=== PATIENT | male | born 1960 | race Caucasian/White ===

== ENCOUNTER 2018-07-27 17:06 | Emergency (ER) | payer OTHER ==
[2018-07-27] MEDS ORDERED: Sodium Chloride 0.9% 1,000 ML IV ONE ×2 (17:19→19:21)
--- NOTE | 2018-07-27 17:20 | EDM.PDOC ---
ED HPI GENERAL MEDICAL PROBLEM - General Chief Complaint: Chest Pain Stated Complaint: TROUBLE BREATHING Time Seen by Provider: 07/27/18 17:19 Source of Information: Reports: Patient - History of Present Illness INITIAL COMMENTS - FREE TEXT/NARRATIVE: HISTORY AND PHYSICAL: History of present illness: [Patient presents with fever and epigastric pain on deep inspiration patient complains of shortness of breath however he does not appear short of breath he relates the shortness of breath to the pain on deep inspiration he does not have actual chest pain or diaphoresis patient symptoms began yesterday 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 Past medical history: As per history of present illness and as reviewed below otherwise noncontributory. Surgical history: As per history of present illness and as reviewed below otherwise noncontributory. Social history: No reported history of drug or alcohol abuse. Family history: As per history of present illness and as reviewed below otherwise noncontributory. Physical exam: HEENT: Atraumatic, normocephalic, pupils reactive, negative for conjunctival pallor or scleral icterus, mucous membranes moist, throat clear, neck supple, nontender, trachea midline. Lungs: Clear to auscultation, breath sounds equal bilaterally, chest nontender. Heart: S1S2, regular, negative for clicks, rubs, or JVD. Abdomen: Soft, nondistended, epigastric pain on deep palpation. Negative for masses or hepatosplenomegaly. Negative for costovertebral tenderness. Pelvis: Stable nontender. Genitourinary: Deferred. Rectal: Deferred. Extremities: Atraumatic, negative for cords or calf pain. Neurovascular unremarkable. Neuro: Awake, alert, oriented. Cranial nerves II through XII unremarkable. Cerebellum unremarkable. Motor and sensory unremarkable throughout. Exam nonfocal. Diagnostics: [CBC CMP troponin lipase UA blood cultures quanteferion on gold D-dimer Chest [address] with contrast CTA chest ] Therapeutics: [Normal saline Tylenol Morphine 2 mg IV DuoNeb Solu-Medrol 125 mg IV Banana bag Vancomycin 1 g IV Levaquin 750 IV Patient is transferred to [facility] Doctor Abebe in the emergency room has excepted care, will transfer by ground follow CT and redirected in the interim ] Impression: [Fever] Sinus tachycardia Hypotension systemic inflammatory response syndrome Infiltrate on chest x-ray/pneumonia Abdominal pain Definitive disposition and diagnosis as appropriate pending reevaluation and review of above. Left Chest Pain Score (Numeric/FACES): 10 - Related Data Allergies Allergy/AdvReac Type Severity Reaction Status Date / Time aspirin Allergy Anaphylactic Verified 07/27/18 17:21 Shock ibuprofen Allergy Difficulty Verified 07/27/18 17:21 Breathing Penicillins Allergy Anaphylactic Verified 07/27/18 17:21 Shock Home Meds: Home Meds Albuterol Sulfate [Proair Hfa] 2 puff INH ASDIRECTED PRN 04/01/18 [History] Budesonide/Formoterol Fumarate [Symbicort 160-4.5 Mcg Inhaler] 1 puff INH BID [History] Lisinopril 20 mg PO DAILY 04/01/18 [History] Pantoprazole [ProTONIX] 40 mg PO DAILY 04/01/18 [History] Sertraline [Zoloft] 50 mg PO BEDTIME 04/01/18 [History] Simvastatin [Zocor] 10 mg PO BEDTIME 04/01/18 [History] metFORMIN HCl [Metformin HCl] 1,000 mg PO BID 04/01/18 [History] traZODone HCl [Trazodone HCl] 50 mg PO BEDTIME PRN 04/01/18 [History] Cyclobenzaprine HCl 0.5 - 1 tab PO ASDIRECTED PRN 06/12/18 [History] Dulaglutide [Trulicity] 0.75 mg SUBCUT WEEKLY 06/12/18 [History] Empagliflozin [Jardiance] 25 mg PO DAILY 06/12/18 [History] Montelukast Sodium 10 mg PO BEDTIME 06/12/18 [History] Tiotropium [place] [Spiriva Respimat] 2 inhalation INH DAILY 06/12/18 [History] predniSONE 10 mg PO WITHBREAKFAST 06/12/18 [History] Past Medical History HEENT History: Reports: None Cardiovascular History: Reports: High Cholesterol, Hypertension Respiratory History: Reports: Asthma, COPD Gastrointestinal History: Reports: GERD Other Genitourinary History: states kidney failure in the past Musculoskeletal History: Reports: Back Pain, Chronic, Osteoarthritis Neurological History: Reports: Concussion Psychiatric History: Reports: Anxiety, Depression Endocrine/Metabolic History: Reports: Diabetes, Type II - Past Surgical History Head Surgeries/Procedures: Reports: None HEENT Surgical History: Reports: Cataract Surgery, Naso-Sinus Surgery Musculoskeletal Surgical History: Reports: Hip Replacement Other Musculoskeletal Surgeries/Procedures:: daniel hip replacement Social & Family History - Family History Family Medical History: Noncontributory - Caffeine Use Caffeine Use: Reports: Coffee, Soda ED ROS GENERAL - Review of Systems Review Of Systems: See Below ED EXAM, GENERAL - Physical Exam Exam: See Below Course - Vital Signs Last Recorded V/S: Last Vital Signs Temp 103.8 F H 07/27/18 18:11 Pulse 138 H 07/27/18 18:11 Resp 25 H 07/27/18 18:11 BP 125/53 L 07/27/18 18:11 Pulse Ox 94 L 07/27/18 18:11 - Orders/Labs/Meds Orders: Active Orders 24 hr Category Date Time Status EKG Documentation Completion [RC] STAT Care 07/27/18 17:19 Active RT Aerosol Therapy [RC] ASDIRECTED Care 07/27/18 19:00 Active Abdomen Pelvis w Cont [CT] Stat Exams 07/27/18 17:59 Taken CTA Chest W WO Contrast [Ang Chest] [CT] Stat Exams 07/27/18 18:32 Taken CULTURE BLOOD [BC] Stat Lab 07/27/18 17:20 Received CULTURE BLOOD [BC] Stat Lab 07/27/18 17:40 Received CULTURE STREP A CONFIRMATION [RM] Stat Lab 07/27/18 17:22 Results QUANTIFERON TB PLUS [REF] Stat Lab 07/27/18 19:02 Received STREP SCRN A RAPID W CULT CONF [RM] Stat Lab 07/27/18 17:22 Results Levofloxacin/Dextrose 5%-Water [Levaquin in D5W 750 MG/ Med 07/27/18 18:49 Active 150 ML] 750 mg Premix Bag 1 bag IV ONETIME MVI, Adult with Vitamin K [Infuvite Adult] 10 ml Med 07/27/18 18:45 Active Thiamine [Vitamin B-1] 100 mg Folic Acid 1 mg Sodium Chloride 0.9% [Normal Saline] 1,000 ml IV ONETIME Vancomycin [Vancocin] 1 gm Med 07/27/18 18:49 Active Sodium Chloride 0.9% [Normal Saline] 250 ml IV ONETIME Blood Culture x2 Reflex Set [OM.PC] Stat Oth 07/27/18 17:24 Ordered Medication Orders Multivitamins/Minerals 10 ml/Thiamine HCl 100 mg/ Folic Acid 1 mg/ Sodium Chloride 1,011.2 mls @ 200 mls/hr IV ONETIME ONE Stop: 07/27/18 23:48 Levofloxacin/Dextrose 750 mg/ (Premix) 150 mls @ 100 mls/hr IV ONETIME ONE Stop: 07/27/18 20:18 Vancomycin HCl 1 gm/ Sodium (Chloride) 250 mls @ 250 mls/hr IV ONETIME ONE Stop: 07/27/18 19:48 Labs: Laboratory Tests 07/27/18 07/27/18 07/27/18 Range/Units 17:20 17:20 17:20 WBC 8.25 (4.0-11.0) K/uL RBC 4.65 (4.50-5.90) M/uL Hgb 12.1 L (13.0-17.0) g/dL Hct 36.9 L (38.0-50.0) % MCV 79.4 L (80.0-98.0) fL MCH 26.0 L (27.0-32.0) pg MCHC 32.8 (31.0-37.0) g/dL RDW Std Deviation 50.0 (28.0-62.0) fl RDW Coeff of Lydia 18 H (11.0-15.0) % Plt Count 152 (150-400) K/uL MPV 9.40 (7.40-12.00) fL Neut % (Auto) 89.2 H (48.0-80.0) % Lymph % (Auto) 6.3 L (16.0-40.0) % [place] % (Auto) 4.4 (0.0-15.0) % Eos % (Auto) 0.1 (0.0-7.0) % Baso % (Auto) 0.0 (0.0-1.5) % Neut # (Auto) 7.4 H (1.4-5.7) K/uL Lymph # (Auto) 0.5 L (0.6-2.4) K/uL [place] # (Auto) 0.4 (0.0-0.8) K/uL Eos # (Auto) 0.0 (0.0-0.7) K/uL Baso # (Auto) 0.0 (0.0-0.1) K/uL Nucleated RBC % 0.0 /100WBC Nucleated RBCs # 0 K/uL INR 1.02 D-Dimer, Quantitative (0.0-0.50) mg/L FEU Lactate (0.20-2.00) mmol/L Sodium 135 L (136-148) mmol/L Potassium 3.9 (3.5-5.1) mmol/L Chloride 99 (98-107) mmol/L Carbon Dioxide 22.6 (21.0-32.0) mmol/L BUN 15 (7.0-18.0) mg/dL Creatinine 1.0 (0.8-1.3) mg/dL Est Cr Clr Drug Dosing 91.51 mL/min Estimated GFR (MDRD) > 60.0 ml/min Glucose 99 (74-106) mg/dL Calcium 8.9 (8.5-10.1) mg/dL Total Bilirubin 0.7 (0.2-1.0) mg/dL AST 23 (15-37) IU/L ALT 37 (14-63) IU/L Alkaline Phosphatase 61 (46-116) U/L Troponin I < 0.050 (0.000-0.056) ng/mL Total Protein 7.2 (6.4-8.2) g/dL Albumin 3.7 (3.4-5.0) g/dL Globulin 3.5 (2.6-4.0) g/dL Albumin/Globulin Ratio 1.1 (0.9-1.6) Lipase (73-393) U/L Urine Color Urine Appearance Urine pH (5.0-8.0) Ur Specific [place] (1.001-1.035) Urine Protein (NEGATIVE) mg/dL Urine Glucose (UA) (NEGATIVE) mg/dL Urine Ketones (NEGATIVE) mg/dL Urine Occult Blood (NEGATIVE) Urine Nitrite (NEGATIVE) Urine Bilirubin (NEGATIVE) Urine Urobilinogen (<2.0) EU/dL Ur Leukocyte Esterase (NEGATIVE) 07/27/18 07/27/18 07/27/18 Range/Units 17:20 17:20 17:22 WBC (4.0-11.0) K/uL RBC (4.50-5.90) M/uL Hgb (13.0-17.0) g/dL Hct (38.0-50.0) % MCV (80.0-98.0) fL MCH (27.0-32.0) pg MCHC (31.0-37.0) g/dL RDW Std Deviation (28.0-62.0) fl RDW Coeff of Lydia (11.0-15.0) % Plt Count (150-400) K/uL MPV (7.40-12.00) fL Neut % (Auto) (48.0-80.0) % Lymph % (Auto) (16.0-40.0) % [place] % (Auto) (0.0-15.0) % Eos % (Auto) (0.0-7.0) % Baso % (Auto) (0.0-1.5) % Neut # (Auto) (1.4-5.7) K/uL Lymph # (Auto) (0.6-2.4) K/uL [place] # (Auto) (0.0-0.8) K/uL Eos # (Auto) (0.0-0.7) K/uL Baso # (Auto) (0.0-0.1) K/uL Nucleated RBC % /100WBC Nucleated RBCs # K/uL INR D-Dimer, Quantitative 0.38 (0.0-0.50) mg/L FEU Lactate 3.1 H (0.20-2.00) mmol/L Sodium (136-148) mmol/L Potassium (3.5-5.1) mmol/L Chloride (98-107) mmol/L Carbon Dioxide (21.0-32.0) mmol/L BUN (7.0-18.0) mg/dL Creatinine (0.8-1.3) mg/dL Est Cr Clr Drug Dosing mL/min Estimated GFR (MDRD) ml/min Glucose (74-106) mg/dL Calcium (8.5-10.1) mg/dL Total Bilirubin (0.2-1.0) mg/dL AST (15-37) IU/L ALT (14-63) IU/L Alkaline Phosphatase (46-116) U/L Troponin I (0.000-0.056) ng/mL Total Protein (6.4-8.2) g/dL Albumin (3.4-5.0) g/dL Globulin (2.6-4.0) g/dL Albumin/Globulin Ratio (0.9-1.6) Lipase 132 (73-393) U/L Urine Color Urine Appearance Urine pH (5.0-8.0) Ur Specific [place] (1.001-1.035) Urine Protein (NEGATIVE) mg/dL Urine Glucose (UA) (NEGATIVE) mg/dL Urine Ketones (NEGATIVE) mg/dL Urine Occult Blood (NEGATIVE) Urine Nitrite (NEGATIVE) Urine Bilirubin (NEGATIVE) Urine Urobilinogen (<2.0) EU/dL Ur Leukocyte Esterase (NEGATIVE) 07/27/18 Range/Units 18:05 WBC (4.0-11.0) K/uL RBC (4.50-5.90) M/uL Hgb (13.0-17.0) g/dL Hct (38.0-50.0) % MCV (80.0-98.0) fL MCH (27.0-32.0) pg MCHC (31.0-37.0) g/dL RDW Std Deviation (28.0-62.0) fl RDW Coeff of Lydia (11.0-15.0) % Plt Count (150-400) K/uL MPV (7.40-12.00) fL Neut % (Auto) (48.0-80.0) % Lymph % (Auto) (16.0-40.0) % [place] % (Auto) (0.0-15.0) % Eos % (Auto) (0.0-7.0) % Baso % (Auto) (0.0-1.5) % Neut # (Auto) (1.4-5.7) K/uL Lymph # (Auto) (0.6-2.4) K/uL [place] # (Auto) (0.0-0.8) K/uL Eos # (Auto) (0.0-0.7) K/uL Baso # (Auto) (0.0-0.1) K/uL Nucleated RBC % /100WBC Nucleated RBCs # K/uL INR D-Dimer, Quantitative (0.0-0.50) mg/L FEU Lactate (0.20-2.00) mmol/L Sodium (136-148) mmol/L Potassium (3.5-5.1) mmol/L Chloride (98-107) mmol/L Carbon Dioxide (21.0-32.0) mmol/L BUN (7.0-18.0) mg/dL Creatinine (0.8-1.3) mg/dL Est Cr Clr Drug Dosing mL/min Estimated GFR (MDRD) ml/min Glucose (74-106) mg/dL Calcium (8.5-10.1) mg/dL Total Bilirubin (0.2-1.0) mg/dL AST (15-37) IU/L ALT (14-63) IU/L Alkaline Phosphatase (46-116) U/L Troponin I (0.000-0.056) ng/mL Total Protein (6.4-8.2) g/dL Albumin (3.4-5.0) g/dL Globulin (2.6-4.0) g/dL Albumin/Globulin Ratio (0.9-1.6) Lipase (73-393) U/L Urine Color YELLOW Urine Appearance CLEAR Urine pH 5.0 (5.0-8.0) Ur Specific [place] 1.015 (1.001-1.035) Urine Protein NEGATIVE (NEGATIVE) mg/dL Urine Glucose (UA) NEGATIVE (NEGATIVE) mg/dL Urine Ketones NEGATIVE (NEGATIVE) mg/dL Urine Occult Blood NEGATIVE (NEGATIVE) Urine Nitrite NEGATIVE (NEGATIVE) Urine Bilirubin NEGATIVE (NEGATIVE) Urine Urobilinogen 0.2 (<2.0) EU/dL Ur Leukocyte Esterase NEGATIVE (NEGATIVE) Meds: Medications Generic Name Dose Route Start Last Admin Trade Name Freq PRN Reason Stop Dose Admin Multivitamins/Minerals 10 ml/ 1,011.2 mls @ 200 mls/hr 07/27/18 18:45 Thiamine HCl 100 mg/ Folic IV 07/27/18 23:48 Acid 1 mg/ Sodium Chloride ONETIME ONE Levofloxacin/Dextrose 750 mg/ 150 mls @ 100 mls/hr 07/27/18 18:49 Premix IV 07/27/18 20:18 ONETIME ONE Vancomycin HCl 1 gm/ Sodium 250 mls @ 250 mls/hr 07/27/18 18:49 Chloride IV 07/27/18 19:48 ONETIME ONE Discontinued Medications Generic Name Dose Route Start Last Admin Trade Name Janay PRN Reason Stop Dose Admin Acetaminophen 1,000 mg 07/27/18 17:24 07/27/18 17:34 Tylenol Extra Strength PO 07/27/18 17:25 1,000 mg ONETIME ONE Administration Albuterol/Ipratropium 3 ml 07/27/18 19:00 Duoneb 3.0-0.5 Mg/3 Ml NEB 07/27/18 19:01 ONETIME ONE Sodium Chloride 1,000 mls @ 999 mls/hr 07/27/18 17:19 07/27/18 17:34 Normal Saline IV 07/27/18 18:19 999 mls/hr STAT ONE Administration Methylprednisolone Sodium Succinate 125 mg 07/27/18 19:00 Solu-Medrol IVPUSH 07/27/18 19:01 ONETIME ONE Morphine Sulfate 2 mg 07/27/18 18:17 Morphine IVPUSH 07/27/18 18:18 ONETIME ONE Departure - Departure Time of Disposition: 19:25 Disposition: DC/Tfer to Acute Hospital 02 Condition: Poor Clinical Impression: Systemic inflammatory response syndrome, Pneumonia - Discharge Information Referrals: Derrick Dove MD [Primary Care Provider] - Forms: ED Department Discharge - My Orders Last 24 Hours: My Active Orders 07/27/18 17:19 EKG Documentation Completion [RC] STAT 07/27/18 17:20 CULTURE BLOOD [BC] Stat 07/27/18 17:22 CULTURE STREP A CONFIRMATION [RM] Stat STREP SCRN A RAPID W CULT CONF [RM] Stat 07/27/18 17:24 Blood Culture x2 Reflex Set [OM.PC] Stat 07/27/18 17:40 CULTURE BLOOD [BC] Stat 07/27/18 17:59 Abdomen Pelvis w Cont [CT] Stat 07/27/18 18:32 CTA Chest W WO Contrast [Ang Chest] [CT] Stat 07/27/18 18:45 MVI, Adult with Vitamin K [Infuvite Adult] 10 ml Thiamine [Vitamin B-1] 100 mg Folic Acid 1 mg Sodium Chloride 0.9% [Normal Saline] 1,000 ml IV ONETIME 07/27/18 18:49 Levofloxacin/Dextrose 5%-Water [Levaquin in D5W 750 MG/150 ML] 750 mg Premix Bag 1 bag IV ONETIME Vancomycin [Vancocin] 1 gm Sodium Chloride 0.9% [Normal Saline] 250 ml IV ONETIME 07/27/18 19:00 RT Aerosol Therapy [RC] ASDIRECTED 07/27/18 19:02 QUANTIFERON TB PLUS [REF] Stat - Assessment/Plan Last 24 Hours: My Active Orders 07/27/18 17:19 EKG Documentation Completion [RC] STAT 07/27/18 17:20 CULTURE BLOOD [BC] Stat 07/27/18 17:22 CULTURE STREP A CONFIRMATION [RM] Stat STREP SCRN A RAPID W CULT CONF [RM] Stat 07/27/18 17:24 Blood Culture x2 Reflex Set [OM.PC] Stat 07/27/18 17:40 CULTURE BLOOD [BC] Stat 07/27/18 17:59 Abdomen Pelvis w Cont [CT] Stat 07/27/18 18:32 CTA Chest W WO Contrast [Ang Chest] [CT] Stat 07/27/18 18:45 MVI, Adult with Vitamin K [Infuvite Adult] 10 ml Thiamine [Vitamin B-1] 100 mg Folic Acid 1 mg Sodium Chloride 0.9% [Normal Saline] 1,000 ml IV ONETIME 07/27/18 18:49 Levofloxacin/Dextrose 5%-Water [Levaquin in D5W 750 MG/150 ML] 750 mg Premix Bag 1 bag IV ONETIME Vancomycin [Vancocin] 1 gm Sodium Chloride 0.9% [Normal Saline] 250 ml IV ONETIME 07/27/18 19:00 RT Aerosol Therapy [RC] ASDIRECTED 07/27/18 19:02 QUANTIFERON TB PLUS [REF] Stat
[2018-07-27] MEDS ORDERED: Acetaminophen 500 MG Tab PO ONE (17:24)
[2018-07-27 18:00] LABS: CHLORIDE,CL 99 mmol/L (98-107); SODIUM,NA 135 mmol/L (136-148)
[2018-07-27] MEDS ORDERED: Morphine 2 MG/ML Syringe IVPUSH ONE (18:17)
[2018-07-27] MEDS ORDERED: MVI, Adult with Vitamin K 10 ML, Thiamine 100 MG, Folic Acid 1 MG in Sodium Chloride 0.... IV ONE ×4 (18:45)
[2018-07-27] MEDS ORDERED: Levofloxacin/Dextrose 5%-Water 750 MG in Premix Bag 1 BAG IV ONE (18:49)
[2018-07-27] MEDS ORDERED: methylPREDNISolone Sodium Succinate 125 MG/2 ML SDV IVPUSH ONE (19:00)
[2018-07-27] MEDS ORDERED: Albuterol/Ipratropium 3.0-0.5 MG/3 ML Neb Soln NEB ONE (19:00)
--- NOTE | 2018-07-27 19:00 | CR ---
INDICATION: Pain TECHNIQUE: Chest 1 views COMPARISON: Chest x-ray 04/01/2018 FINDINGS: Cardiovascular and mediastinum: Heart size and vasculature are normal in caliber and appearance. Lungs and pleural spaces: No pleural effusion or pneumothorax. Patchy opacities at the right mid lung and left mid to lower lung. Bones and soft tissues: No significant findings. IMPRESSION: Patchy opacities in the right mid lung and left lower lung. Appearance would favor a process such as pneumonia if there are signs/symptoms of infection. In that clinical setting follow-up radiographs would be recommended in 8 weeks to document resolution. If there are no infectious symptoms, CT scan of the chest would be suggested for further characterization. Dictated by Valerio Harrison MD @ Jul 27 2018 6:56PM Signed by Dr. Valerio Harrison @ Jul 27 2018 6:58PM
--- NOTE | 2018-07-27 19:44 | CT ---
INDICATION: Pain COMPARISON: None available TECHNIQUE: CT examination of the abdomen and pelvis was performed with the uneventful intravenous administration of Isovue-370 injected during the accompanying CT of the chest while 3 mm thick axial sections were obtained from the lung bases through the pubic symphysis. Oral contrast was not administered. Please note that all CT scans at this facility use dose modulation, iterative reconstruction, and/or weight-based dosing when appropriate to reduce radiation dose to as low as reasonably achievable. FINDINGS: There is mild dilatation of the small bowel in the left upper and lower quadrants and the inferior pelvis, with the point of transition located in the right upper pelvis on axial image 109 series 601. The distal small bowel is smaller in caliber. The findings suggest a partial small bowel obstruction probably from an adhesion. N the abdomen, the liver, pancreas, and adrenals are normal in appearance. The spleen is top-normal in size, measuring 12.2 centimeters in length. The kidneys are normal in appearance. The gallbladder is normal in appearance. The abdominal aorta is normal in caliber with no sign of dilatation. There is no sign of retroperitoneal mass or adenopathy. The stomach and colon in the abdomen are normal in appearance. In the pelvis, the appendix is normal in appearance with no sign of inflammatory process. There is moderate streak artifact from bilateral total hip prostheses, partially obscuring structures in the inferior pelvis. The loops of distal small bowel and colon in the pelvis are normal in appearance. The prostate is mildly enlarged, measuring 4.8 centimeters in diameter. It is otherwise normal in appearance. The urinary bladder is normal in appearance. There is no sign of pelvic or inguinal mass or adenopathy. There is mild atelectasis in the posterior and medial left lung base. The lung bases are otherwise clear. Aside from the total hip prostheses mentioned above, the osseous structures are normal in appearance for the patient`s age. IMPRESSION: Mild dilatation of the proximal and mid small bowel extending to a point of transition in the right upper pelvis, findings suggesting partial small bowel obstruction from an adhesion. No other abnormality seen in the abdomen. CT of the pelvis shows mild enlargement of the prostate. Please note that all CT scans at this facility use dose modulation, iterative reconstruction, and/or weight-based dosing when appropriate to reduce radiation dose to as low as reasonably achievable. Dictated by Armin Corral MD @ Jul 27 2018 7:31PM Signed by Dr. Armin Corral @ Jul 27 2018 7:42PM
[2018-07-27 19:45] VITALS: BP 93/45
--- NOTE | 2018-07-27 20:51 | CT ---
INDICATION: Thoracic pain. COMPARISON: Chest single view from earlier today. TECHNIQUE: CT angiography of the chest was performed before and after the uneventful intravenous administration of 100 cc of Isovue 370 while spiral acquisitions were obtained. 3 mm thick axial sections were obtained from above the apices of the lungs through the superior abdomen prior to contrast enhancement. Following contrast administration, 1 millimeter thick axial sections are obtained. Please note that all CT scans at this facility use dose modulation, iterative reconstruction, and/or weight-based dosing when appropriate to reduce radiation dose to as low as reasonably achievable. FINDINGS: The thoracic aorta is normal in caliber with no sign of dilatation or dissection. There is no sign of periaortic hematoma. There are large patchy rounded areas of consolidation in the posterior segment of the right upper lobe and in the superior segment of the left lower lobe, almost certainly areas of pneumonia. There is mild patchy density in the posterior left lung base which is probably atelectasis. Mild linear scarring is seen in the anterior-inferior lingula. There is satisfactory enhancement of the pulmonary arteries, with no sign of pulmonary embolism. There is no sign of mediastinal or hilar mass or adenopathy. There is mild prominence of mediastinal and hilar lymph nodes, probably reactive. There is no sign of supraclavicular or axillary mass or adenopathy. The heart and great vessels are normal in appearance. The visualized superior liver, spleen, pancreas, and adrenals are normal in appearance. The osseous structures are normal in appearance for the patient`s age. IMPRESSION: Normal CT angiogram of the thoracic aorta. Large rounded areas of consolidation in the posterior segment of the right upper lobe and the superior segment of the left lower lobe consistent with bilateral pneumonia. Reactive lymph nodes in the [place] and mediastinum without adenopathy. No sign of pulmonary embolism. Please note that all CT scans at this facility use dose modulation, iterative reconstruction, and/or weight-based dosing when appropriate to reduce radiation dose to as low as reasonably achievable. Dictated by Armin Corral MD @ Jul 27 2018 8:38PM Signed by Dr. Armin Corral @ Jul 27 2018 8:49PM
== END 2018-07-27 20:30 ==
LOC: MW.ED 17:06
DX: J18.9 Pneumonia, unspecified organism (principal); I95.9 Hypotension, unspecified; R65.11 Systemic inflammatory response syndrome (SIRS) of non-infectious origin with acute organ dysfunction; R00.0 Tachycardia, unspecified; K21.9 Gastro-esophageal reflux disease without esophagitis; I10 Essential (primary) hypertension; E78.00 Pure hypercholesterolemia, unspecified; F41.9 Anxiety disorder, unspecified; F32.9 Major depressive disorder, single episode, unspecified; E11.9 Type 2 diabetes mellitus without complications; J44.9 Chronic obstructive pulmonary disease, unspecified; Z79.84 Long term (current) use of oral hypoglycemic drugs; Z79.899 Other long term (current) drug therapy; Z88.6 Allergy status to analgesic agent; Z88.0 Allergy status to penicillin
CPT/HCPCS: 36415; 71045; 71275; 74177; 80053; 81003; 83605; 83690; 84484; 85025; 85379; 85610; 86480; 87040; 87081; 87804; 87880; 93005; 96361; 96365; 96375; 99285; A9270; J1956; J2930; J3370; J3411; J7040; J7050; J7620-GY

== ENCOUNTER 2018-10-04 09:09 | Emergency (ER) | payer MEDICARE, OTHER ==
[2018-10-04] MEDS ORDERED: Sodium Chloride 0.9% 10 ML Syringe FLUSH PRN (09:33)
[2018-10-04] MEDS ORDERED: Sodium Chloride 0.9% 2.5 ML Syringe FLUSH PRN (09:33)
[2018-10-04] MEDS ORDERED: Sodium Chloride 0.9% 1,000 ML IV ONE ×2 (09:35→09:36)
[2018-10-04] MEDS ORDERED: Ondansetron 4 MG/2 ML SDV IVPUSH ONE ×2 (09:35→11:43)
[2018-10-04] MEDS ORDERED: Morphine 2 MG/ML Syringe IVPUSH ONE ×2 (09:35→13:35)
--- NOTE | 2018-10-04 09:39 | EDM.PDOC ---
ED HPI GENERAL MEDICAL PROBLEM - General Chief Complaint: Gastrointestinal Problem Stated Complaint: VOMITING Time Seen by Provider: 10/04/18 09:25 - History of Present Illness INITIAL COMMENTS - FREE TEXT/NARRATIVE: HISTORY AND PHYSICAL: History of present illness: The patient is a 58-year-old male with a history of COPD/asthma hypertension diabetes and who underwent abdominal surgery at [facility] 2 weeks ago for an inguinal hernia repair as well as a polypectomy and colon resection. According to the daughter at bedside the could not remove the polyp on colonoscopy so they did a laparoscopic procedure and when they were doing this they noticed an area of an abnormal blood vessel with the colon and that section of the colon was resected for preventative measures. The patient was discharged in his been doing relatively well at home and over the last few days has had abdominal distention nausea and vomiting which seemed to worsen today and he cannot tolerate anything by mouth. Daughter says he looks very gassy and seems bloated. The patient denies chest pain or shortness of breath and he has not had any fevers. He has not had a solid bowel movement since his surgery and has not had a bowel movement in the last 1-2 days. He's also having decreased urine output. Water they have not contacted the doctors at [place]. The incision sites look good and have not changed and do not have any redness or drainage Review of systems: As per history of present illness and below otherwise all systems reviewed and negative. Past medical history: As per history of present illness and as reviewed below otherwise noncontributory. Surgical history: As per history of present illness and as reviewed below otherwise noncontributory. Social history: No reported history of drug or alcohol abuse. Family history: As per history of present illness and as reviewed below otherwise noncontributory. Physical exam: General: Well-developed well-nourished very thin man who is nontoxic and vital signs are noted by me. HEENT: Atraumatic, normocephalic, negative for conjunctival pallor or scleral icterus, mucous membranes tacky, throat clear, neck supple, nontender, trachea midline. Lungs: Clear to auscultation at her coarse breath sounds but no work of breathing, breath sounds equal bilaterally, chest nontender. Heart: S1S2, regular rhythm and sightly tachycardic rate of my evaluation Abdomen: Soft, distended abdomen with tympany on percussion and bowel sounds are very hypoactive, is tympany on percussion of the upper abdomen with discomfort with this, incisions look clean and dry and the periumbilical incision has some minimal surrounding erythema but no drainage or fluctuance, the patient has diffuse abdominal tenderness and some fluid wave appreciated but the pain is more diffuse and not localized to any one area but seems to be more intense in the upper abdomen. Negative for masses or hepatosplenomegaly. Pelvis: Stable nontender. Genitourinary: Deferred. Rectal: Deferred. Extremities: Atraumatic, negative for cords or calf pain. Neurovascular unremarkable. Neuro: Awake, alert, oriented. Cranial nerves II through XII unremarkable. Cerebellum unremarkable. Motor and sensory unremarkable throughout. Exam nonfocal. Diagnostics: CBC CMP lactic acid UA with reflex abdominal and chest x-rays EKG CT scan of the abdomen and pelvis Therapeutics: IV O2 monitor IV fluids Zofran morphine, cefepime NG tube to suction 1231: The case was discussed with Dr. Roberts at [facility] and he accepts the patient for transfer. He would like a dose of antibiotics being given and asked for Unasyn or Zosyn but the patient has an allergy so I will give him cefepime. He would like an NG tube to be placed. I will continue with IV fluid management and advise the ambulance on IV fluids and Zofran administration. The patient did produce about 10-15 mL of very concentrated urine which will be sent to the lab and Dr. Roberts is aware. Impression: Small bowel obstruction, status post colon surgery Definitive disposition and diagnosis as appropriate pending reevaluation and review of above. generalized body Pain Score (Numeric/FACES): 10 - Related Data Allergies Allergy/AdvReac Type Severity Reaction Status Date / Time aspirin Allergy Anaphylactic Verified 10/04/18 09:26 Shock ibuprofen Allergy Difficulty Verified 10/04/18 09:26 Breathing Penicillins Allergy Anaphylactic Verified 10/04/18 09:26 Shock Home Meds: Home Meds Albuterol Sulfate [Proair Hfa] 2 puff INH ASDIRECTED PRN 04/01/18 [History] Budesonide/Formoterol Fumarate [Symbicort 160-4.5 Mcg Inhaler] 1 puff INH BID [History] Lisinopril 20 mg PO DAILY 04/01/18 [History] Pantoprazole [ProTONIX] 40 mg PO DAILY 04/01/18 [History] Sertraline [Zoloft] 50 mg PO BEDTIME 04/01/18 [History] Simvastatin [Zocor] 10 mg PO BEDTIME 04/01/18 [History] metFORMIN HCl [Metformin HCl] 1,000 mg PO BID 04/01/18 [History] traZODone HCl [Trazodone HCl] 50 mg PO BEDTIME PRN 04/01/18 [History] Cyclobenzaprine HCl 0.5 - 1 tab PO ASDIRECTED PRN 06/12/18 [History] Dulaglutide [Trulicity] 0.75 mg SUBCUT WEEKLY 06/12/18 [History] Empagliflozin [Jardiance] 25 mg PO DAILY 06/12/18 [History] Montelukast Sodium 10 mg PO BEDTIME 06/12/18 [History] Tiotropium [place] [Spiriva Respimat] 2 inhalation INH DAILY 06/12/18 [History] predniSONE 10 mg PO WITHBREAKFAST 06/12/18 [History] Acetaminophen/oxyCODONE [Percocet 325-5 MG] 1 tab PO Q4H PRN 10/04/18 [History] Past Medical History HEENT History: Reports: None Cardiovascular History: Reports: High Cholesterol, Hypertension Respiratory History: Reports: Asthma, COPD Gastrointestinal History: Reports: GERD Other Genitourinary History: states kidney failure in the past Musculoskeletal History: Reports: Back Pain, Chronic, Osteoarthritis Neurological History: Reports: Concussion Psychiatric History: Reports: Anxiety, Depression Endocrine/Metabolic History: Reports: Diabetes, Type II - Infectious Disease History Infectious Disease History: Reports: Measles, Mumps - Past Surgical History Head Surgeries/Procedures: Reports: None HEENT Surgical History: Reports: Cataract Surgery, Naso-Sinus Surgery GI Surgical History: Reports: Colon, Hernia Repair/Other, Other (See Below) Other GI Surgeries/Procedures: polyp removal Musculoskeletal Surgical History: Reports: Hip Replacement Other Musculoskeletal Surgeries/Procedures:: daniel hip replacement Social & Family History - Family History Family Medical History: Noncontributory - Tobacco Use Smoking Status *Q: Never Smoker - Caffeine Use Caffeine Use: Reports: Coffee - Alcohol Use Days Per Week of Alcohol Use: 7 Number of Drinks Per Day: 5 Total Drinks Per Week: 35 - Recreational Drug Use Recreational Drug Use: No ED ROS GENERAL - Review of Systems Review Of Systems: ROS reveals no pertinent complaints other than HPI. ED EXAM, GENERAL - Physical Exam Exam: See Below (See dictation) Course - Vital Signs Last Recorded V/S: Last Vital Signs Temp 36.9 C 10/04/18 09:22 Pulse 76 10/04/18 12:16 Resp 16 10/04/18 12:16 BP 83/52 L 10/04/18 12:16 Pulse Ox 97 10/04/18 12:16 - Orders/Labs/Meds Orders: Active Orders 24 hr Category Date Time Status Blood Glucose Check, Bedside [] ONETIME Care 10/04/18 09:34 Active Blood Glucose Check, Bedside [RC] ONETIME Care 10/04/18 09:36 Active Cardiac Monitoring [RC] . DIRECTED Care 10/04/18 09:33 Active EKG Documentation Completion [] STAT Care 10/04/18 09:33 Active Oxygen Therapy, ED [RC] ASDIRECTED Care 10/04/18 09:33 Active Pulse Oximetry [RC] ASDIRECTED Care 10/04/18 09:33 Active UA RFX YOCASTA AND CULT IF INDIC [URIN] Stat Lab 10/04/18 09:34 Ordered Cefepime [Maxipime in D5W 1 GM/50 ML] 1 gm Med 10/04/18 12:33 Ordered Premix Bag 1 bag IV ONETIME Sodium Chloride 0.9% [Normal Saline] 1,000 ml Med 10/04/18 10:45 Active IV ASDIRECTED Sodium Chloride 0.9% [Saline Flush] Med 10/04/18 09:33 Active 10 ml FLUSH ASDIRECTED PRN Sodium Chloride 0.9% [Saline Flush] Med 10/04/18 09:33 Active 2.5 ml FLUSH ASDIRECTED PRN Nasogastric Orogastric Tube Insertion [OM.PC] Stat Oth 10/04/18 12:34 Ordered Saline Lock Insert [OM.PC] Stat Oth 10/04/18 09:33 Ordered Medication Orders Sodium Chloride (Normal Saline) 1,000 mls @ 150 mls/hr IV ASDIRECTED [place] Last Admin: 10/04/18 10:58 Dose: 150 mls/hr Sodium Chloride (Saline Flush) 10 ml FLUSH ASDIRECTED PRN PRN Reason: Keep Vein Open Last Admin: 10/04/18 09:53 Dose: 10 ml Sodium Chloride (Saline Flush) 2.5 ml FLUSH ASDIRECTED PRN PRN Reason: Keep Vein Open Last Admin: 10/04/18 09:53 Dose: 2.5 ml Labs: Laboratory Tests 10/04/18 10/04/18 10/04/18 Range/Units 09:30 09:30 09:30 WBC 18.32 H (4.0-11.0) K/uL RBC 5.32 (4.50-5.90) M/uL Hgb 14.3 (13.0-17.0) g/dL Hct 43.5 (38.0-50.0) % MCV 81.8 (80.0-98.0) fL MCH 26.9 L (27.0-32.0) pg MCHC 32.9 (31.0-37.0) g/dL RDW Std Deviation 49.2 (28.0-62.0) fl RDW Coeff of Lydia 17 H (11.0-15.0) % Plt Count 541 H (150-400) K/uL MPV 9.40 (7.40-12.00) fL Neut % (Auto) 74.9 (48.0-80.0) % Lymph % (Auto) 16.7 (16.0-40.0) % Randolph % (Auto) 7.6 (0.0-15.0) % Eos % (Auto) 0.5 (0.0-7.0) % Baso % (Auto) 0.3 (0.0-1.5) % Neut # (Auto) 13.7 H (1.4-5.7) K/uL Lymph # (Auto) 3.1 H (0.6-2.4) K/uL Randolph # (Auto) 1.4 H (0.0-0.8) K/uL Eos # (Auto) 0.1 (0.0-0.7) K/uL Baso # (Auto) 0.1 (0.0-0.1) K/uL Nucleated RBC % 0.0 /100WBC Nucleated RBCs # 0 K/uL Lactate 2.4 H (0.20-2.00) mmol/L Sodium 134 L (136-148) mmol/L Potassium 4.6 (3.5-5.1) mmol/L Chloride 93 L (98-107) mmol/L Carbon Dioxide 21.1 (21.0-32.0) mmol/L BUN 42 H (7.0-18.0) mg/dL Creatinine 4.3 H (0.8-1.3) mg/dL Est Cr Clr Drug Dosing 17.02 mL/min Estimated GFR (MDRD) 14.3 ml/min Glucose 148 H (74-106) mg/dL POC Glucose (60-110) mg/dL Calcium 9.9 (8.5-10.1) mg/dL Total Bilirubin 0.7 (0.2-1.0) mg/dL AST 31 (15-37) IU/L ALT 58 (14-63) IU/L Alkaline Phosphatase 84 (46-116) U/L Total Protein 9.2 H (6.4-8.2) g/dL Albumin 4.5 (3.4-5.0) g/dL Globulin 4.7 H (2.6-4.0) g/dL Albumin/Globulin Ratio 1.0 (0.9-1.6) 10/04/18 Range/Units 09:57 WBC (4.0-11.0) K/uL RBC (4.50-5.90) M/uL Hgb (13.0-17.0) g/dL Hct (38.0-50.0) % MCV (80.0-98.0) fL MCH (27.0-32.0) pg MCHC (31.0-37.0) g/dL RDW Std Deviation (28.0-62.0) fl RDW Coeff of Lydia (11.0-15.0) % Plt Count (150-400) K/uL MPV (7.40-12.00) fL Neut % (Auto) (48.0-80.0) % Lymph % (Auto) (16.0-40.0) % Randolph % (Auto) (0.0-15.0) % Eos % (Auto) (0.0-7.0) % Baso % (Auto) (0.0-1.5) % Neut # (Auto) (1.4-5.7) K/uL Lymph # (Auto) (0.6-2.4) K/uL Randolph # (Auto) (0.0-0.8) K/uL Eos # (Auto) (0.0-0.7) K/uL Baso # (Auto) (0.0-0.1) K/uL Nucleated RBC % /100WBC Nucleated RBCs # K/uL Lactate (0.20-2.00) mmol/L Sodium (136-148) mmol/L Potassium (3.5-5.1) mmol/L Chloride (98-107) mmol/L Carbon Dioxide (21.0-32.0) mmol/L BUN (7.0-18.0) mg/dL Creatinine (0.8-1.3) mg/dL Est Cr Clr Drug Dosing mL/min Estimated GFR (MDRD) ml/min Glucose (74-106) mg/dL POC Glucose 126 H (60-110) mg/dL Calcium (8.5-10.1) mg/dL Total Bilirubin (0.2-1.0) mg/dL AST (15-37) IU/L ALT (14-63) IU/L Alkaline Phosphatase (46-116) U/L Total Protein (6.4-8.2) g/dL Albumin (3.4-5.0) g/dL Globulin (2.6-4.0) g/dL Albumin/Globulin Ratio (0.9-1.6) Meds: Medications Generic Name Dose Route Start Last Admin Trade Name Freq PRN Reason Stop Dose Admin Sodium Chloride 1,000 mls @ 150 mls/hr 10/04/18 10:45 10/04/18 10:58 Normal Saline IV 150 mls/hr ASDIRECTED [place] Administration Sodium Chloride 10 ml 10/04/18 09:33 10/04/18 09:53 Saline Flush FLUSH 10 ml ASDIRECTED PRN Administration Keep Vein Open Sodium Chloride 2.5 ml 10/04/18 09:33 10/04/18 09:53 Saline Flush FLUSH 2.5 ml ASDIRECTED PRN Administration Keep Vein Open Discontinued Medications Generic Name Dose Route Start Last Admin Trade Name Freq PRN Reason Stop Dose Admin Sodium Chloride 1,000 mls @ 999 mls/hr 10/04/18 09:35 10/04/18 09:53 Normal Saline IV 10/04/18 10:35 999 mls/hr STAT ONE Administration Sodium Chloride 1,000 mls @ 999 mls/hr 10/04/18 09:36 10/04/18 09:53 Normal Saline IV 10/04/18 10:36 999 mls/hr STAT ONE Administration Morphine Sulfate 4 mg 10/04/18 09:35 10/04/18 09:57 Morphine IVPUSH 10/04/18 09:36 4 mg ONETIME ONE Administration Ondansetron HCl 4 mg 10/04/18 09:35 10/04/18 09:53 Zofran IVPUSH 10/04/18 09:36 4 mg ONETIME ONE Administration Ondansetron HCl 4 mg 10/04/18 11:43 10/04/18 11:53 Zofran IVPUSH 10/04/18 11:44 4 mg ONETIME ONE Administration Departure - Departure Time of Disposition: 12:35 Disposition: DC/Tfer to Acute Hospital 02 Condition: Good Clinical Impression: Bowel obstruction Qualifiers: Intestinal obstruction type: unspecified Intestinal obstruction extent: partial Qualified Code(s): K56.600 - Partial intestinal obstruction, unspecified as to cause Postoperative complication Qualifiers: Surgical complication system/body Area: [id number] - Discharge Information Referrals: Derrick Dove MD [Primary Care Provider] - Forms: ED Department Discharge - My Orders Last 24 Hours: My Active Orders 10/04/18 09:33 Cardiac Monitoring [RC] . DIRECTED EKG Documentation Completion [RC] STAT Oxygen Therapy, ED [RC] ASDIRECTED Pulse Oximetry [RC] ASDIRECTED Sodium Chloride 0.9% [Saline Flush] 10 ml FLUSH ASDIRECTED PRN Sodium Chloride 0.9% [Saline Flush] 2.5 ml FLUSH ASDIRECTED PRN Saline Lock Insert [OM.PC] Stat 10/04/18 09:34 Blood Glucose Check, Bedside [RC] ONETIME UA RFX YOCASTA AND CULT IF INDIC [URIN] Stat 10/04/18 09:36 Blood Glucose Check, Bedside [RC] ONETIME 10/04/18 10:45 Sodium Chloride 0.9% [Normal Saline] 1,000 ml IV ASDIRECTED 10/04/18 12:33 Cefepime [Maxipime in D5W 1 GM/50 ML] 1 gm Premix Bag 1 bag IV ONETIME 10/04/18 12:34 Nasogastric Orogastric Tube Insertion [OM.PC] Stat - Assessment/Plan Last 24 Hours: My Active Orders 10/04/18 09:33 Cardiac Monitoring [RC] . DIRECTED EKG Documentation Completion [RC] STAT Oxygen Therapy, ED [RC] ASDIRECTED Pulse Oximetry [RC] ASDIRECTED Sodium Chloride 0.9% [Saline Flush] 10 ml FLUSH ASDIRECTED PRN Sodium Chloride 0.9% [Saline Flush] 2.5 ml FLUSH ASDIRECTED PRN Saline Lock Insert [OM.PC] Stat 10/04/18 09:34 Blood Glucose Check, Bedside [RC] ONETIME UA RFX YOCASTA AND CULT IF INDIC [URIN] Stat 10/04/18 09:36 Blood Glucose Check, Bedside [RC] ONETIME 10/04/18 10:45 Sodium Chloride 0.9% [Normal Saline] 1,000 ml IV ASDIRECTED 10/04/18 12:33 Cefepime [Maxipime in D5W 1 GM/50 ML] 1 gm Premix Bag 1 bag IV ONETIME 10/04/18 12:34 Nasogastric Orogastric Tube Insertion [OM.PC] Stat
--- NOTE | 2018-10-04 10:19 | CR ---
EXAMINATION: Portable chest radiograph. HISTORY: Shortness of breath. FINDINGS: The trachea is midline. The cardiomediastinal silhouette is within normal limits. Trace residual infiltrate noted within the right suprahilar region and left perihilar region compared to 07/27/2018. Otherwise the lungs are clear without pleural effusion or pneumothorax. Osseous structures appear unremarkable. IMPRESSION: Trace residual infiltrate within the perihilar regions in comparison to the previous examinations.
--- NOTE | 2018-10-04 10:21 | CR ---
EXAMINATION: Abdomen HISTORY: Rule out free air COMPARISON: None TECHNIQUE: Single AP upright view of the upper abdomen. FINDINGS: There is no free air under the diaphragm. There are several moderately prominent loops of small bowel measuring up to approximately 4.7 cm. No notable gas within the colon. Visualized osseous structures otherwise appear normal. IMPRESSION: 1. Moderately dilated loops of small bowel, this may represent a small obstruction.
[2018-10-04] MEDS ORDERED: Sodium Chloride 0.9% 1,000 ML IV SCH ×2 (10:45→12:45)
--- NOTE | 2018-10-04 12:01 | CT ---
CT of the abdomen and pelvis without contrast. HISTORY: Recent colon surgery TECHNIQUE: Axial CT images were obtained of the abdomen and pelvis without contrast. Coronal and sagittal reconstructions obtained. FINDINGS: The lung bases are clear, no pleural effusion. The blood density relative to myocardium is decreased. The liver, spleen, adrenal glands, and pancreas appear unremarkable for noncontrast examination. The gallbladder appears normal. There is no bulky retroperitoneal lymphadenopathy. No abdominal ascites. There are no calcifications noted within the kidneys or along the courses of the ureters bilaterally. There are multiple dilated loops of small bowel measuring up to approximately 5 cm. There is a transition point at the small bowel colonic anastomosis with narrowing of the distalmost portion of the remaining small bowel. There is no bulky pelvic lymphadenopathy. No free fluid. No free air. The urinary bladder appears normal. Bilateral total hip hardware noted. IMPRESSION: 1. Multiple dilated loops of small bowel extending to the small bowel colonic anastomosis consistent with a bowel obstruction. 2. Decreased blood density suggestive of anemia.
[2018-10-04] MEDS ORDERED: Cefepime 1 GM in Premix Bag 1 BAG IV ONE (12:33)
[2018-10-04] MEDS ORDERED: LORazepam 2 MG/ML SDV IVPUSH ONE (12:39)
[2018-10-04 13:16] VITALS: BP 87/50
== END 2018-10-04 14:00 ==
LOC: MW.ED 09:09
DX: K56.600 Partial intestinal obstruction, unspecified as to cause (principal); K91.89 Other postprocedural complications and disorders of digestive system; E78.00 Pure hypercholesterolemia, unspecified; I10 Essential (primary) hypertension; J44.9 Chronic obstructive pulmonary disease, unspecified; F41.9 Anxiety disorder, unspecified; F32.9 Major depressive disorder, single episode, unspecified; E11.9 Type 2 diabetes mellitus without complications; Z88.6 Allergy status to analgesic agent; Z88.0 Allergy status to penicillin; Z79.899 Other long term (current) drug therapy; Z79.84 Long term (current) use of oral hypoglycemic drugs
CPT/HCPCS: 36415; 43752; 71045; 74018; 74176; 80053; 81001; 82962; 83605; 85025; 93005; 96361; 96365; 96374; 96375; 96376; 99285; J0692; J2060; J2270; J2405; J7040; 99284

== ENCOUNTER 2019-02-21 08:26 | Emergency (ER) | payer MEDICARE, OTHER ==
--- NOTE | 2019-02-21 08:47 | EDM.PDOC ---
ED HPI GENERAL MEDICAL PROBLEM - General Chief Complaint: Skin Complaint Stated Complaint: RIGHT ARM HAS A HOLE Time Seen by Provider: 02/21/19 08:28 Source of Information: Reports: Patient History Limitations: Reports: No Limitations - History of Present Illness INITIAL COMMENTS - FREE TEXT/NARRATIVE: History of present illness: []Patient had a bug in his right sleeve that bit him a week ago. He has a raised lesion that has drained a small amount of pus every day. He denies any fevers, chills or any other pain. Patient is a diabetic and his daughter urged him to come to the emergency room to get this treated. Not checked his sugar since he was bitten. Patient is up-to-date with tetanus. Review of systems: As per history of present illness and below otherwise all systems reviewed and negative. Past medical history: As per history of present illness and as reviewed below otherwise noncontributory. Surgical history: As per history of present illness and as reviewed below otherwise noncontributory. Social history: No reported history of drug or alcohol abuse. Family history: As per history of present illness and as reviewed below otherwise noncontributory. Physical exam: General: Well developed, well nourished in NAD HEENT: Atraumatic, normocephalic, pupils reactive, negative for conjunctival pallor or scleral icterus, mucous membranes moist, throat clear, neck supple, nontender, trachea midline. Lungs: Clear to auscultation, breath sounds equal bilaterally, chest nontender. Heart: S1S2, regular, negative for clicks, rubs, or JVD. Abdomen: NABS, Soft, nondistended, nontender. Negative for masses or hepatosplenomegaly. Negative for costovertebral tenderness. Pelvis: Stable nontender. Genitourinary: Deferred. Rectal: Deferred. Extremities: 3 x 3 cm raised indurated lesion with scab there is minimal fluctuance, negative for cords or calf pain. Neurovascular unremarkable. Neuro: Awake, alert, oriented. Cranial nerves II through XII unremarkable. Cerebellum unremarkable. Motor and sensory unremarkable throughout. Exam nonfocal. Skin:warm and dry Diagnostics: bedside glucose-107 Therapeutics: Lesion was cleaned with Betadine and was needled the 25-gauge and no purulent drainage was aspirated ED Course: Stable Impression: Cellulitis right arm secondary to bug bite Prescriptions: Bactrim Plan: Bactrim twice a day for 7 days warm soaks follow-up with primary care Definitive disposition and diagnosis as appropriate pending reevaluation and review of above. - Related Data Allergies Allergy/AdvReac Type Severity Reaction Status Date / Time aspirin Allergy Anaphylactic Verified 02/21/19 08:32 Shock ibuprofen Allergy Difficulty Verified 02/21/19 08:32 Breathing Penicillins Allergy Anaphylactic Verified 02/21/19 08:32 Shock Home Meds: Home Meds Albuterol Sulfate [Proair Hfa] 2 puff INH ASDIRECTED PRN 04/01/18 [History] Lisinopril 20 mg PO DAILY 04/01/18 [History] Pantoprazole [ProTONIX] 40 mg PO DAILY 04/01/18 [History] Sertraline [Zoloft] 50 mg PO BEDTIME 04/01/18 [History] Simvastatin [Zocor] 10 mg PO BEDTIME 04/01/18 [History] metFORMIN HCl [Metformin HCl] 1,000 mg PO BID 04/01/18 [History] traZODone HCl [Trazodone HCl] 50 mg PO BEDTIME PRN 04/01/18 [History] Dulaglutide [Trulicity] 0.75 mg SUBCUT WEEKLY 06/12/18 [History] Empagliflozin [Jardiance] 25 mg PO DAILY 06/12/18 [History] Montelukast Sodium 10 mg PO BEDTIME 06/12/18 [History] Tiotropium [place] [Spiriva Respimat] 2 inhalation INH DAILY 06/12/18 [History] predniSONE 10 mg PO WITHBREAKFAST 06/12/18 [History] Sulfamethoxazole/Trimethoprim [Bactrim Ds Tablet] 1 each PO BID #14 tablet 02/21 [Rx] Past Medical History HEENT History: Reports: Allergic Rhinitis Cardiovascular History: Reports: High Cholesterol, Hypertension Respiratory History: Reports: Asthma, COPD Gastrointestinal History: Reports: Bowel Obstruction, Colon Polyp, GERD Other Genitourinary History: states kidney failure in the past Musculoskeletal History: Reports: Back Pain, Chronic, Osteoarthritis Neurological History: Reports: Concussion Psychiatric History: Reports: Anxiety Endocrine/Metabolic History: Reports: Diabetes, Type II Hematologic History: Reports: None Immunologic History: Reports: None Oncologic (Cancer) History: Reports: None Dermatologic History: Reports: None - Infectious Disease History Infectious Disease History: Reports: Measles, Mumps - Past Surgical History Head Surgeries/Procedures: Reports: None HEENT Surgical History: Reports: Cataract Surgery, Naso-Sinus Surgery Cardiovascular Surgical History: Reports: None Respiratory Surgical History: Reports: None GI Surgical History: Reports: Colon, Colonoscopy, Other (See Below) Other GI Surgeries/Procedures: laparoscopic rt hemicolectomy for SBO Male Surgical History: Reports: None Endocrine Surgical History: Reports: None Neurological Surgical History: Reports: None Musculoskeletal Surgical History: Reports: Hip Replacement Other Musculoskeletal Surgeries/Procedures:: daniel hip replacement Oncologic Surgical History: Reports: None Dermatological Surgical History: Reports: None Social & Family History - Family History Family Medical History: Noncontributory - Tobacco Use Smoking Status *Q: Former Smoker Used Tobacco, but Quit: Yes Month/Year Tobacco Last Used: 15 years ago - Caffeine Use Caffeine Use: Reports: Coffee - Alcohol Use Days Per Week of Alcohol Use: 7 Number of Drinks Per Day: 2 Total Drinks Per Week: 14 - Recreational Drug Use Recreational Drug Use: No ED ROS GENERAL - Review of Systems Review Of Systems: See Below ED EXAM, SKIN/RASH Exam: See Below Course - Vital Signs Last Recorded V/S: Last Vital Signs Temp 96.3 F 02/21/19 08:33 Pulse 90 02/21/19 09:15 Resp 18 02/21/19 09:15 BP 158/95 H 02/21/19 09:15 Pulse Ox 95 02/21/19 09:15 - Orders/Labs/Meds Labs: Laboratory Tests 02/21/19 Range/Units 08:41 POC Glucose 107 (60-110) mg/dL Departure - Departure Time of Disposition: 08:58 Disposition: Home, Self-Care 01 Condition: Good Clinical Impression: Cellulitis Qualifiers: Site of cellulitis: extremity Site of cellulitis of extremity: upper extremity Laterality: right Qualified Code(s): L03.113 - Cellulitis of right upper limb - Discharge Information *PRESCRIPTION DRUG MONITORING PROGRAM REVIEWED*: Not Applicable *COPY OF PRESCRIPTION DRUG MONITORING REPORT IN PATIENT JHON: Not Applicable Prescriptions: Sulfamethoxazole/Trimethoprim [Bactrim Ds Tablet] 1 each PO BID #14 tablet Instructions: Cellulitis, Adult, [id number] Referrals: PCP,None [Primary Care Provider] - Forms: ED Department Discharge Additional Instructions: The following information is given to patients seen in the emergency department who are being discharged to home. This information is to outline your options for follow-up care. We provide all patients seen in our emergency department with a follow-up referral. The need for follow-up, as well as the timing and circumstances, are variable depending upon the specifics of your emergency department visit. If you don't have a primary care physician on staff, we will provide you with a referral. We always advise you to contact your personal physician following an emergency department visit to inform them of the circumstance of the visit and for follow-up with them and/or the need for any referrals to a consulting specialist. The emergency department will also refer you to a specialist when appropriate. This referral assures that you have the opportunity for follow-up care with a specialist. All of these measure are taken in an effort to provide you with optimal care, which includes your follow-up. Under all circumstances we always encourage you to contact your private physician who remains a resource for coordinating your care. When calling for follow-up care, please make the office aware that this follow-up is from your recent emergency room visit. If for any reason you are refused follow-up, please contact the [facility] Emergency Department at and asked to speak to the emergency department charge nurse. Take meds as directed, follow up with your primary care physician, return to ER if symptoms worsen or change. [facility] [address] [place] [id number]
[2019-02-21 09:22] VITALS: BP 158/95; PULSE 90
== END 2019-02-21 09:18 | disposition home or self-care (01) ==
LOC: MW.ED 08:26
DX: S40.861A Insect bite (nonvenomous) of right upper arm, initial encounter (principal); L03.113 Cellulitis of right upper limb; I10 Essential (primary) hypertension; E78.00 Pure hypercholesterolemia, unspecified; J44.9 Chronic obstructive pulmonary disease, unspecified; K21.9 Gastro-esophageal reflux disease without esophagitis; E11.9 Type 2 diabetes mellitus without complications; F41.9 Anxiety disorder, unspecified; Z79.84 Long term (current) use of oral hypoglycemic drugs; Z88.6 Allergy status to analgesic agent; Z88.0 Allergy status to penicillin; Z79.899 Other long term (current) drug therapy; Z87.891 Personal history of nicotine dependence; W57.XXXA Bitten or stung by nonvenomous insect and other nonvenomous arthropods, initial encounter
CPT/HCPCS: 82962; 99282

== ENCOUNTER 2019-02-23 08:41 | Day surgery (SDC) | payer MEDICARE, OTHER ==
[~2019-02-23 08:41] MED LIST: Lactated Ringers 1,000 ML IV SCH
[2019-02-23] MEDS ORDERED: Albuterol/Ipratropium 3.0-0.5 MG/3 ML Neb Soln NEB ONE (10:37)
--- NOTE | 2019-02-23 10:41 | PCM.PREANE ---
Preanesthetic Assessment - Anesthesia/Transfusion/Family Hx Anesthesia History: Prior Anesthesia Without Reaction Other Type of Anesthesia Reaction Comment: Unable to recall what medicine was used but patient states it was anethesi Family History of Anesthesia Reaction: No Transfusion History: No Prior Transfusion(s) - Review of Systems General: No Symptoms Pulmonary: Wheezing Cardiovascular: No Symptoms Neurological: No Symptoms Other: Reports: None - Physical Assessment NPO Status Date: 02/22/19 NPO Status Time: 20:00 Vital Signs: Last Vital Signs Temp 98.1 F 02/23/19 10:13 Pulse 78 02/23/19 10:13 Resp 18 02/23/19 10:13 BP 137/84 02/23/19 10:13 Pulse Ox 96 02/23/19 10:13 Height: 5 ft 10 in Weight: 87.09 kg ASA Class: 3 Mental Status: Alert & Oriented x3 Airway Class: Mallampati = 2 Dentition: Reports: Edentulous ROM/Head Extension: Full Lungs: Clear to Auscultation, Normal Respiratory Effort Cardiovascular: Regular Rate, Regular Rhythm - Allergies Allergies/Adverse Reactions: Allergies Allergy/AdvReac Type Severity Reaction Status Date / Time aspirin Allergy Anaphylactic Verified 02/21/19 08:32 Shock ibuprofen Allergy Difficulty Verified 02/21/19 08:32 Breathing Penicillins Allergy Anaphylactic Verified 02/21/19 08:32 Shock - Blood Blood Available: No - Anesthesia Plan Pre-Op Medication Ordered: None - Acknowledgements Anesthesia Type Planned: General Anesthesia Pt an Appropriate Candidate for the Planned Anesthesia: Yes Alternatives and Risks of Anesthesia Discussed w Pt/Guardian: Yes Pt/Guardian Understands and Agrees with Anesthesia Plan: Yes Additional Comments: PMH: copd/asthma with limited reserve, last ed visit 4-5 months ago, admitted. has been transfered to [facility] for copd RA- on steroids 10 mg/day chr pain gerd htn dm2 anxiety PLAN: tiva with no benzoa and no narcotics pre procedure duoneb for wheezes PreAnesthesia Questionnaire HEENT History: Reports: Allergic Rhinitis Cardiovascular History: Reports: High Cholesterol, Hypertension Respiratory History: Reports: Asthma, COPD Gastrointestinal History: Reports: Bowel Obstruction, Colon Polyp, GERD Other Genitourinary History: states kidney failure in the past Musculoskeletal History: Reports: Back Pain, Chronic, Osteoarthritis Neurological History: Reports: Concussion Psychiatric History: Reports: Anxiety Endocrine/Metabolic History: Reports: Diabetes, Type II Hematologic History: Reports: None Immunologic History: Reports: None Oncologic (Cancer) History: Reports: None Dermatologic History: Reports: None - Infectious Disease History Infectious Disease History: Reports: Measles, Mumps - Past Surgical History Head Surgeries/Procedures: Reports: None HEENT Surgical History: Reports: Cataract Surgery, Naso-Sinus Surgery Cardiovascular Surgical History: Reports: None Respiratory Surgical History: Reports: None GI Surgical History: Reports: Colon, Colonoscopy, Other (See Below) Other GI Surgeries/Procedures: laparoscopic rt hemicolectomy for SBO Male Surgical History: Reports: None Endocrine Surgical History: Reports: None Neurological Surgical History: Reports: None Musculoskeletal Surgical History: Reports: Hip Replacement Other Musculoskeletal Surgeries/Procedures:: daniel hip replacement Oncologic Surgical History: Reports: None Dermatological Surgical History: Reports: None - SUBSTANCE USE Smoking Status *Q: Former Smoker Tobacco Use Within Last Twelve Months: No Days Per Week of Alcohol Use: 7 Number of Drinks Per Day: 2 Total Drinks Per Week: 14 - HOME MEDS Home Medications: Home Meds Albuterol Sulfate [Proair Hfa] 2 puff INH ASDIRECTED PRN 04/01/18 [History] Lisinopril 20 mg PO DAILY 04/01/18 [History] Pantoprazole [ProTONIX] 40 mg PO DAILY 04/01/18 [History] Sertraline [Zoloft] 50 mg PO BEDTIME 04/01/18 [History] Simvastatin [Zocor] 10 mg PO BEDTIME 04/01/18 [History] metFORMIN HCl [Metformin HCl] 1,000 mg PO BID 04/01/18 [History] traZODone HCl [Trazodone HCl] 50 mg PO BEDTIME PRN 04/01/18 [History] Dulaglutide [Trulicity] 0.75 mg SUBCUT WEEKLY 06/12/18 [History] Empagliflozin [Jardiance] 25 mg PO DAILY 06/12/18 [History] Montelukast Sodium 10 mg PO BEDTIME 06/12/18 [History] Tiotropium [place] [Spiriva Respimat] 2 inhalation INH DAILY 06/12/18 [History] predniSONE 10 mg PO WITHBREAKFAST 06/12/18 [History] Sulfamethoxazole/Trimethoprim [Bactrim Ds Tablet] 1 each PO BID #14 tablet 02/21 [Rx] - CURRENT (IN HOUSE) MEDS Current Meds: Current Medications Albuterol/Ipratropium (Duoneb 3.0-0.5 Mg/3 Ml) 3 ml NEB ONETIME ONE Stop: 02/23/19 10:38 Lactated Ringer's (Ringers, Lactated) 1,000 mls @ 125 mls/hr IV ASDIRECTED [facility] Last Admin: 02/23/19 10:15 Dose: 125 mls/hr
[2019-02-23] MEDS ORDERED: Lidocaine 2% 5 ML SDV ONE (10:52)
[2019-02-23] MEDS ORDERED: Propofol 200 MG/20 ML SDV ONE (10:52)
--- NOTE | 2019-02-23 11:22 | PCM.OPNOTE ---
- General Post-Op/Procedure Note Date of Surgery/Procedure: 02/23/19 Operative Procedure(s): Esophagogastroduodenoscopy with gastric and esophageal biopsies Pre Op Diagnosis: Progressive gastroesophageal reflux disease. Anemia. Post-Op Diagnosis: Acute and chronic gastritis. Small hiatal hernia with distal esophagitis. Anesthesia Technique: MAC (ASA III) Primary Surgeon: Fran Leblanc Condition: Good Free Text/Narrative:: DICTATION [id number] CPT CODE [id number]
[2019-02-23] MEDS ORDERED: Lactated Ringers 1,000 ML IV SCH (11:30)
--- NOTE | 2019-02-23 11:51 | PCM.POSTAN ---
POST ANESTHESIA ASSESSMENT - MENTAL STATUS Mental Status: Alert, Oriented - VITAL SIGNS Vital Signs: Last Vital Signs Temp 98.1 F 02/23/19 10:13 Pulse 92 02/23/19 11:44 Resp 16 02/23/19 11:44 BP 121/64 02/23/19 11:44 Pulse Ox 93 L 02/23/19 11:44 - RESPIRATORY Respiratory Status: Respiratory Rate WNL, Airway Patent, O2 Saturation Stable - CARDIOVASCULAR CV Status: Pulse Rate WNL, Blood Pressure Stable - GASTROINTESTINAL GI Status: No Symptoms - PAIN Pain Score: 0 - POST OP HYDRATION Hydration Status: Adequate & Stable - OBSERVATIONS Free Text/Narrative:: Pt stable for discharge to phase II recovery.
[2019-02-23 11:57] VITALS: BP 128/61; PULSE 90
--- NOTE | 2019-02-23 12:00 | PCM48HPAN ---
Post Anesthesia Note - EVALUATION WITHIN 48HRS OF ANESTHETIC Vital Signs in Normal Range: Yes Patient Participated in Evaluation: Yes Respiratory Function Stable: Yes Airway Patent: Yes Cardiovascular Function Stable: Yes Hydration Status Stable: Yes Pain Control Satisfactory: Yes Nausea and Vomiting Control Satisfactory: Yes Mental Status Recovered: Yes Vital Signs: Last Vital Signs Temp 98.6 F 02/23/19 11:50 Pulse 90 02/23/19 11:50 Resp 16 02/23/19 11:50 BP 128/61 02/23/19 11:50 Pulse Ox 94 L 02/23/19 11:50 - COMMENTS/OBSERVATIONS Free Text/Narrative:: Pt stable with no complications.
--- NOTE | 2019-02-23 13:02 | OR ---
SURGEON: Fran Leblanc M.D. DATE OF PROCEDURE: 02/23/2019 OPERATION PERFORMED: Esophagogastroduodenoscopy with gastric and esophageal biopsies. PRIMARY SURGEON: Fran Leblanc MD. ANESTHESIA: MAC. ASA CLASSIFICATION: III. PREOPERATIVE DIAGNOSIS: Progressive gastroesophageal reflux disease with anemia. POSTOPERATIVE DIAGNOSES: 1. Acute on chronic gastritis. 2. Esophagitis. DESCRIPTION OF PROCEDURE: The patient was taken to the endoscopy room and positioned on the endoscopy table in the supine position. Time-out was called for appropriate identification of the patient and procedure. Monitored anesthesia care was provided. The bite block was placed between the patient's teeth. The gastroscope was inserted through the bite block and advanced without difficulty through the esophagus and stomach into the duodenum where examination was now carried out in a retrograde fashion. The duodenum shows no acute inflammatory changes or ulcerations. The stomach shows a chronic and acute gastritis. Antral biopsies were obtained to look for the presence of Helicobacter pylori. The gastroscope was retroflexed to visualize the proximal stomach. No mid or proximal lesions were identified. Specifically, no ulcers were seen. The gastroscope was then straightened and slowly withdrawn. The GE junction is well defined. There does appear to be a very small hiatal hernia and changes suggestive of distal esophagitis were noted. Separate biopsies of the distal esophagus were obtained. The mid and proximal esophagus demonstrated no acute abnormalities. The esophagus itself demonstrated good contractility. The vocal cords were visualized as the scope was withdrawn and noted to move symmetrically. The oropharynx was suctioned well through the gastroscope before the scope was withdrawn. The gastroscope was then removed with the patient having tolerated the procedure well. He was taken to recovery room in stable condition. HUSAM / CHERYLE /[id number]
== END 2019-02-23 12:06 | disposition home or self-care (01) ==
LOC: MW.SDS 08:41
PROVIDERS: ATTEND Surgery
DX: K21.0 Gastro-esophageal reflux disease with esophagitis (principal); K29.00 Acute gastritis without bleeding; K29.50 Unspecified chronic gastritis without bleeding; K44.9 Diaphragmatic hernia without obstruction or gangrene; D50.9 Iron deficiency anemia, unspecified; I10 Essential (primary) hypertension; E11.9 Type 2 diabetes mellitus without complications; E78.00 Pure hypercholesterolemia, unspecified; K21.9 Gastro-esophageal reflux disease without esophagitis; J45.909 Unspecified asthma, uncomplicated; F41.8 Other specified anxiety disorders; M06.9 Rheumatoid arthritis, unspecified; Z88.6 Allergy status to analgesic agent; Z88.0 Allergy status to penicillin; Z90.49 Acquired absence of other specified parts of digestive tract; Z87.891 Personal history of nicotine dependence; Z86.010 Personal history of colon polyps; Z79.84 Long term (current) use of oral hypoglycemic drugs; Z79.52 Long term (current) use of systemic steroids; Z79.51 Long term (current) use of inhaled steroids; Z79.899 Other long term (current) drug therapy
CPT/HCPCS: 43239; 94640; J2001; J2704; J7120; 88305; 88312; J7620-GY

== ENCOUNTER 2019-03-05 08:35 | Emergency (ER) | payer MEDICARE ==
[2019-03-05] MEDS ORDERED: methylPREDNISolone Sodium Succinate 125 MG/2 ML SDV IM ONE (08:47)
[2019-03-05] MEDS ORDERED: Albuterol/Ipratropium 3.0-0.5 MG/3 ML Neb Soln NEB ONE (08:47)
--- NOTE | 2019-03-05 08:48 | EDM.PDOC ---
ED HPI GENERAL MEDICAL PROBLEM - General Chief Complaint: Respiratory Problem Stated Complaint: SOB Time Seen by Provider: 03/05/19 08:48 Source of Information: Reports: Patient - History of Present Illness INITIAL COMMENTS - FREE TEXT/NARRATIVE: HISTORY AND PHYSICAL: History of present illness: [Patient with severe asthma has been off of his Advair for one month as he has been out of the medication he presents for a prescription for refill as well as shortness of breath no fever nausea vomiting chills sweats no chest pain short headache dizziness palpitation no bowel or urine symptoms On initial exam he does have decreased air movement, no apparent distress, no pursed lip breathing or retractions no tripoding is able speak in full sentences ] Review of systems: As per history of present illness and below otherwise all systems reviewed and negative. Past medical history: As per history of present illness and as reviewed below otherwise noncontributory. Surgical history: As per history of present illness and as reviewed below otherwise noncontributory. Social history: No reported history of drug or alcohol abuse. Family history: As per history of present illness and as reviewed below otherwise noncontributory. Physical exam: HEENT: Atraumatic, normocephalic, pupils reactive, negative for conjunctival pallor or scleral icterus, mucous membranes moist, throat clear, neck supple, nontender, trachea midline. Lungs: Clear to auscultation, breath sounds equal bilaterally, chest nontender. post DuoNeb Heart: S1S2, regular, negative for clicks, rubs, or JVD. Abdomen: Soft, nondistended, nontender. Negative for masses or hepatosplenomegaly. Negative for costovertebral tenderness. Pelvis: Stable nontender. Genitourinary: Deferred. Rectal: Deferred. Extremities: Atraumatic, negative for cords or calf pain. Neurovascular unremarkable. Neuro: Awake, alert, oriented. Cranial nerves II through XII unremarkable. Cerebellum unremarkable. Motor and sensory unremarkable throughout. Exam nonfocal. Diagnostics: [Chest 1 view ] Therapeutics: [ DuoNeb Solu-Medrol 125 mg IM ] Advair Up with primary care Impression: [ asthma medication noncompliance ] Definitive disposition and diagnosis as appropriate pending reevaluation and review of above. - Related Data Allergies Allergy/AdvReac Type Severity Reaction Status Date / Time aspirin Allergy Anaphylactic Verified 03/05/19 08:41 Shock ibuprofen Allergy Difficulty Verified 03/05/19 08:41 Breathing Penicillins Allergy Anaphylactic Verified 03/05/19 08:41 Shock Home Meds: Home Meds Albuterol Sulfate [Proair Hfa] 2 puff INH ASDIRECTED PRN 04/01/18 [History] Lisinopril 20 mg PO DAILY 04/01/18 [History] Pantoprazole [ProTONIX] 40 mg PO DAILY 04/01/18 [History] Sertraline [Zoloft] 50 mg PO BEDTIME 04/01/18 [History] Simvastatin [Zocor] 10 mg PO BEDTIME 04/01/18 [History] metFORMIN HCl [Metformin HCl] 1,000 mg PO BID 04/01/18 [History] traZODone HCl [Trazodone HCl] 50 mg PO BEDTIME PRN 04/01/18 [History] Dulaglutide [Trulicity] 0.75 mg SUBCUT WEEKLY 06/12/18 [History] Empagliflozin [Jardiance] 25 mg PO DAILY 06/12/18 [History] Montelukast Sodium 10 mg PO BEDTIME 06/12/18 [History] Tiotropium [place] [Spiriva Respimat] 2 inhalation INH DAILY 06/12/18 [History] predniSONE 10 mg PO WITHBREAKFAST 06/12/18 [History] Sulfamethoxazole/Trimethoprim [Bactrim Ds Tablet] 1 each PO BID #14 tablet 02/21 [Rx] Past Medical History HEENT History: Reports: Allergic Rhinitis Cardiovascular History: Reports: High Cholesterol, Hypertension Respiratory History: Reports: Asthma, COPD Gastrointestinal History: Reports: Bowel Obstruction, Colon Polyp, GERD Other Genitourinary History: states kidney failure in the past Musculoskeletal History: Reports: Back Pain, Chronic, Osteoarthritis Neurological History: Reports: Concussion Psychiatric History: Reports: Anxiety Endocrine/Metabolic History: Reports: Diabetes, Type II Hematologic History: Reports: None Immunologic History: Reports: None Oncologic (Cancer) History: Reports: None Dermatologic History: Reports: None - Infectious Disease History Infectious Disease History: Reports: Measles, Mumps - Past Surgical History Head Surgeries/Procedures: Reports: None HEENT Surgical History: Reports: Cataract Surgery, Naso-Sinus Surgery Cardiovascular Surgical History: Reports: None Respiratory Surgical History: Reports: None GI Surgical History: Reports: Colon, Colonoscopy, Other (See Below) Other GI Surgeries/Procedures: laparoscopic rt hemicolectomy for SBO Male Surgical History: Reports: None Endocrine Surgical History: Reports: None Neurological Surgical History: Reports: None Musculoskeletal Surgical History: Reports: Hip Replacement Other Musculoskeletal Surgeries/Procedures:: daniel hip replacement Oncologic Surgical History: Reports: None Dermatological Surgical History: Reports: None Social & Family History - Family History Family Medical History: Noncontributory - Tobacco Use Smoking Status *Q: Former Smoker Used Tobacco, but Quit: Yes Month/Year Tobacco Last Used: 1999 - Caffeine Use Caffeine Use: Reports: Coffee - Recreational Drug Use Recreational Drug Use: No ED ROS GENERAL - Review of Systems Review Of Systems: See Below ED EXAM, GENERAL - Physical Exam Exam: See Below Course - Vital Signs Last Recorded V/S: Last Vital Signs Temp 97.6 F 03/05/19 08:40 Pulse 100 03/05/19 08:40 Resp 20 03/05/19 08:40 BP 144/76 H 03/05/19 08:40 Pulse Ox 94 L 03/05/19 08:40 - Orders/Labs/Meds Orders: Active Orders 24 hr Category Date Time Status RT Aerosol Therapy [RC] ASDIRECTED Care 03/05/19 08:47 Active Chest 1V Frontal [CR] Stat Exams 03/05/19 08:48 Taken Meds: Medications Discontinued Medications Generic Name Dose Route Start Last Admin Trade Name Janay PRN Reason Stop Dose Admin Albuterol/Ipratropium 3 ml 03/05/19 08:47 03/05/19 08:58 Duoneb 3.0-0.5 Mg/3 Ml NEB 03/05/19 08:48 3 ml ONETIME ONE Administration Methylprednisolone Sodium Succinate 125 mg 03/05/19 08:47 03/05/19 08:58 Solu-Medrol IM 03/05/19 08:48 125 mg ONETIME ONE Administration Departure - Departure Time of Disposition: 09:24 Disposition: Home, Self-Care 01 Condition: Good Clinical Impression: Asthma - Discharge Information Forms: ED Department Discharge Additional Instructions: The following information is given to patients seen in the emergency department who are being discharged to home. This information is to outline your options for follow-up care. We provide all patients seen in our emergency department with a follow-up referral. The need for follow-up, as well as the timing and circumstances, are variable depending upon the specifics of your emergency department visit. If you don't have a primary care physician on staff, we will provide you with a referral. We always advise you to contact your personal physician following an emergency department visit to inform them of the circumstance of the visit and for follow-up with them and/or the need for any referrals to a consulting specialist. The emergency department will also refer you to a specialist when appropriate. This referral assures that you have the opportunity for follow-up care with a specialist. All of these measure are taken in an effort to provide you with optimal care, which includes your follow-up. Under all circumstances we always encourage you to contact your private physician who remains a resource for coordinating your care. When calling for follow-up care, please make the office aware that this follow-up is from your recent emergency room visit. If for any reason you are refused follow-up, please contact the [facility] emergency department at and asked to speak to the emergency department charge nurse. - My Orders Last 24 Hours: My Active Orders 03/05/19 08:47 RT Aerosol Therapy [RC] ASDIRECTED 03/05/19 08:48 Chest 1V Frontal [CR] Stat - Assessment/Plan Last 24 Hours: My Active Orders 03/05/19 08:47 RT Aerosol Therapy [RC] ASDIRECTED 03/05/19 08:48 Chest 1V Frontal [CR] Stat
[2019-03-05 09:40] VITALS: BP 136/68; PULSE 88
--- NOTE | 2019-03-05 09:54 | CR ---
INDICATION: Shortness of breath. TECHNIQUE: Chest 1 view COMPARISON: Chest radiograph 10/04/2018. FINDINGS: No focal consolidation, pleural effusion, or pneumothorax. Normal heart size and pulmonary vascularity. IMPRESSION: No acute cardiopulmonary findings. Dictated by Leigh Kirkpatrick MD @ Mar 05 2019 9:52AM Signed by Dr. Leigh Kirkpatrick @ Mar 05 2019 9:53AM
== END 2019-03-05 09:33 | disposition home or self-care (01) ==
LOC: MW.ED 08:35
DX: J45.909 Unspecified asthma, uncomplicated (principal); I10 Essential (primary) hypertension; E78.00 Pure hypercholesterolemia, unspecified; K21.9 Gastro-esophageal reflux disease without esophagitis; F41.9 Anxiety disorder, unspecified; E11.9 Type 2 diabetes mellitus without complications; Z91.14 Patient's other noncompliance with medication regimen; Z88.6 Allergy status to analgesic agent; Z88.0 Allergy status to penicillin; Z79.899 Other long term (current) drug therapy; Z79.84 Long term (current) use of oral hypoglycemic drugs; Z87.891 Personal history of nicotine dependence
CPT/HCPCS: 71045; 94640; 96372; 99285; J2930; 99283; J7620-GY

== ENCOUNTER 2019-03-09 14:00 | Observation (INO) | payer MEDICARE ==
[2019-03-09] MEDS ORDERED: Albuterol/Ipratropium 3.0-0.5 MG/3 ML Neb Soln NEB ONE (14:19)
--- NOTE | 2019-03-09 14:19 | EDM.PDOC ---
ED HPI GENERAL MEDICAL PROBLEM - General Chief Complaint: Respiratory Problem Stated Complaint: COUGH, BODY ACHES Time Seen by Provider: 03/09/19 14:10 Source of Information: Reports: Patient History Limitations: Reports: No Limitations - History of Present Illness INITIAL COMMENTS - FREE TEXT/NARRATIVE: HISTORY AND PHYSICAL: History of present illness: Patient is a 58-year-old male who presents to the emergency room with complaints of generalized body aches, cough, sore throat and subjective fever/ chills. Patient is concerned he may have pneumonia as a coworker has recently been diagnosed with this. Patient was seen on 03/05/19 for asthma exacerbation and medication refill. He was given a prescription refill for Advair. States the Advair alone has not improved his symptoms. Patient denies any headache, change in vision, syncope or near syncope. Denies any chest pain, back pain, or neck pain/stiffness. Denies any abdominal pain, nausea, vomiting, diarrhea, constipation or dysuria. Has not noted any blood in urine or stool. Patient has been eating and drinking appropriately. Review of systems: As per history of present illness and below otherwise all systems reviewed and negative. Past medical history: As per history of present illness and as reviewed below otherwise noncontributory. Surgical history: As per history of present illness and as reviewed below otherwise noncontributory. Social history: See social history for further information Family history: As per history of present illness and as reviewed below otherwise noncontributory. Physical exam: General: Well-developed and well-nourished 58-year-old male. Alert and oriented. Nontoxic appearing and in no acute distress. HEENT: Atraumatic, normocephalic, pupils equal and reactive bilaterally, negative for conjunctival pallor or scleral icterus, mucous membranes moist, bilateral maxillary sinus tenderness, TMs normal bilaterally, throat clear, neck supple, nontender, trachea midline. No drooling or trismus noted. No meningeal signs. No hot potato voice noted. Lungs: Expiratory wheezing throughout, mild inspiratory wheezing noted bilaterally. Diminished to the right lower lobe posterior. His chest is nontender. Heart: S1S2, regular rate and rhythm without overt murmur Abdomen: Soft, nondistended, nontender. Negative for masses or hepatosplenomegaly. Negative for costovertebral tenderness. Pelvis: Stable nontender. Skin: Intact, warm, dry. No lesions or rashes noted. Extremities: Atraumatic, moves all extremities per self without difficulty or deficits. Neurovascular unremarkable. Neuro: Awake, alert, oriented. Cranial nerves II through XII unremarkable. Cerebellum unremarkable. Motor and sensory unremarkable throughout. Exam nonfocal. Notes: Influenza screening was normal. EKG shows no acute findings. Patient states that he would like to try outpatient treatment. We'll give him a prescription for Medrol Dosepak, Levaquin and a nebulizer machine at home. He does take Advair daily and has pro-air rescue inhaler available to them.Supportive care measures were reviewed and discussed. Voices understanding and is agreeable to plan of care. Denies any further questions or concerns at this time. Diagnostics: CXR, Influeza, EKG Therapeutics: Geno Buenrostro Prescription: Zpack Medrol Dosepak Impression: Right lower lobe pneumonia Plan: 1. Please continue taking her Advair and pro-air inhaler that you have available to use as directed and as needed. New prescription for an oral antibiotic and steroid has been given to you, start those today. May order picker/assembler a nebulizer machine either at a local pharmacy or this could being covered by her insurance and available at [email or web address]. You may do the nebulizer treatments every 4 hours as needed. 2. Your symptoms should worsen or do not improve you may need to be admitted. 3. Return to the ED as needed and as discussed. Follow up with your primary care provider as discussed. Definitive disposition and diagnosis as appropriate pending reevaluation and review of above. - Related Data Allergies Allergy/AdvReac Type Severity Reaction Status Date / Time aspirin Allergy Anaphylactic Verified 03/09/19 14:12 Shock ibuprofen Allergy Difficulty Verified 03/09/19 14:12 Breathing Penicillins Allergy Anaphylactic Verified 03/09/19 14:12 Shock Home Meds: Home Meds Albuterol Sulfate [Proair Hfa] 2 puff INH ASDIRECTED PRN 04/01/18 [History] Lisinopril 20 mg PO DAILY 04/01/18 [History] Pantoprazole [ProTONIX] 40 mg PO DAILY 04/01/18 [History] Sertraline [Zoloft] 50 mg PO BEDTIME 04/01/18 [History] Simvastatin [Zocor] 10 mg PO BEDTIME 04/01/18 [History] metFORMIN HCl [Metformin HCl] 1,000 mg PO BID 04/01/18 [History] traZODone HCl [Trazodone HCl] 50 mg PO BEDTIME PRN 04/01/18 [History] Dulaglutide [Trulicity] 0.75 mg SUBCUT WEEKLY 06/12/18 [History] Empagliflozin [Jardiance] 25 mg PO DAILY 06/12/18 [History] Montelukast Sodium 10 mg PO BEDTIME 06/12/18 [History] Tiotropium [place] [Spiriva Respimat] 2 inhalation INH DAILY 06/12/18 [History] predniSONE 10 mg PO WITHBREAKFAST 06/12/18 [History] Sulfamethoxazole/Trimethoprim [Bactrim Ds Tablet] 1 each PO BID #14 tablet 02/21 [Rx] Past Medical History HEENT History: Reports: Allergic Rhinitis Cardiovascular History: Reports: High Cholesterol, Hypertension Respiratory History: Reports: Asthma, COPD Gastrointestinal History: Reports: Bowel Obstruction, Colon Polyp, GERD Other Genitourinary History: states kidney failure in the past Musculoskeletal History: Reports: Back Pain, Chronic, Osteoarthritis Neurological History: Reports: Concussion Psychiatric History: Reports: Anxiety Endocrine/Metabolic History: Reports: Diabetes, Type II Hematologic History: Reports: None Immunologic History: Reports: None Oncologic (Cancer) History: Reports: None Dermatologic History: Reports: None - Infectious Disease History Infectious Disease History: Reports: None - Past Surgical History Head Surgeries/Procedures: Reports: None HEENT Surgical History: Reports: Cataract Surgery, Naso-Sinus Surgery Cardiovascular Surgical History: Reports: None Respiratory Surgical History: Reports: None GI Surgical History: Reports: Colon, Colonoscopy, Other (See Below) Other GI Surgeries/Procedures: laparoscopic rt hemicolectomy for SBO Male Surgical History: Reports: None Endocrine Surgical History: Reports: None Neurological Surgical History: Reports: None Musculoskeletal Surgical History: Reports: Hip Replacement Other Musculoskeletal Surgeries/Procedures:: daniel hip replacement Oncologic Surgical History: Reports: None Dermatological Surgical History: Reports: None Social & Family History - Family History Family Medical History: Noncontributory - Tobacco Use Smoking Status *Q: Unknown Ever Smoked - Caffeine Use Caffeine Use: Reports: Coffee - Recreational Drug Use Recreational Drug Use: No ED ROS GENERAL - Review of Systems Review Of Systems: ROS reveals no pertinent complaints other than HPI. ED EXAM, GENERAL - Physical Exam Exam: See Below (See dictation) Course - Vital Signs Last Recorded V/S: Last Vital Signs Temp 98.1 F 03/09/19 14:13 Pulse 106 H 03/09/19 14:59 Resp 20 03/09/19 14:13 BP 106/50 L 03/09/19 14:13 Pulse Ox 91 L 03/09/19 14:59 - Orders/Labs/Meds Orders: Active Orders 24 hr Category Date Time Status EKG Documentation Completion [RC] STAT Care 03/09/19 14:17 Active RT Aerosol Therapy [RC] ASDIRECTED Care 03/09/19 14:19 Active Chest 2V [CR] Stat Exams 03/09/19 14:10 Taken Meds: Medications Discontinued Medications Generic Name Dose Route Start Last Admin Trade Name Freq PRN Reason Stop Dose Admin Albuterol/Ipratropium 3 ml 03/09/19 14:19 03/09/19 14:26 Duoneb 3.0-0.5 Mg/3 Ml NEB 03/09/19 14:20 3 ml ONETIME ONE Administration Departure - Departure Time of Disposition: 15:13 Disposition: Home, Self-Care 01 Clinical Impression: Pneumonia Qualifiers: Pneumonia type: due to unspecified organism Laterality: right Lung location: lower lobe of lung Qualified Code(s): J18.1 - Lobar pneumonia, unspecified organism - Discharge Information Instructions: Community-Acquired Pneumonia, Adult, [id number] Referrals: Manuel Verdugo MD [Primary Care Provider] - Forms: ED Department Discharge Additional Instructions: The following information is given to patients seen in the emergency department who are being discharged to home. This information is to outline your options for follow-up care. We provide all patients seen in our emergency department with a follow-up referral. The need for follow-up, as well as the timing and circumstances, are variable depending upon the specifics of your emergency department visit. If you don't have a primary care physician on staff, we will provide you with a referral. We always advise you to contact your personal physician following an emergency department visit to inform them of the circumstance of the visit and for follow-up with them and/or the need for any referrals to a consulting specialist. The emergency department will also refer you to a specialist when appropriate. This referral assures that you have the opportunity for follow-up care with a specialist. All of these measure are taken in an effort to provide you with optimal care, which includes your follow-up. Under all circumstances we always encourage you to contact your private physician who remains a resource for coordinating your care. When calling for follow-up care, please make the office aware that this follow-up is from your recent emergency room visit. If for any reason you are refused follow-up, please contact the [facility] Emergency Department at and asked to speak to the emergency department charge nurse. [facility] [address] [place] [id number] [facility] [address] [place] [id number] 1. Please continue taking her Advair and pro-air inhaler that you have available to use as directed and as needed. New prescription for an oral antibiotic and steroid has been given to you, start those today. May order picker/assembler a nebulizer machine either at a local pharmacy or this could being covered by her insurance and available at [email or web address]. You may do the nebulizer treatments every 4 hours as needed. 2. Your symptoms should worsen or do not improve you may need to be admitted. 3. Return to the ED as needed and as discussed. Follow up with your primary care provider as discussed. - My Orders Last 24 Hours: My Active Orders 03/09/19 14:10 Chest 2V [CR] Stat 03/09/19 14:17 EKG Documentation Completion [RC] STAT 03/09/19 14:19 RT Aerosol Therapy [RC] ASDIRECTED - Assessment/Plan Last 24 Hours: My Active Orders 03/09/19 14:10 Chest 2V [CR] Stat 03/09/19 14:17 EKG Documentation Completion [RC] STAT 03/09/19 14:19 RT Aerosol Therapy [RC] ASDIRECTED
[2019-03-09] MEDS ORDERED: Sodium Chloride 0.9% 1,000 ML IV ONE (15:35)
--- NOTE | 2019-03-09 15:54 | CR ---
Chest: Two views of the chest were obtained. Comparison: Prior chest x-ray of 03/05/19. Findings: Heart size and mediastinum are normal. Slight parenchymal density is seen within the right lateral costophrenic angle have the appearance of mild atelectasis. Lungs otherwise are clear with no acute parenchymal change. Degenerative spurring is noted within the spine with scoliosis. Impression: Findings as noted above. Nothing acute is seen. Diagnostic code #2 MTDD
[2019-03-09] MEDS ORDERED: methylPREDNISolone Sodium Succinate 125 MG/2 ML SDV IVPUSH ONE (15:57)
[2019-03-09 16:15] LABS: BLOOD UREA NITROGEN,BUN 18 mg/dL (7.0-18.0); CARBON DIOXIDE,CO2 25.9 mmol/L (21.0-32.0); CHLORIDE,CL 98 mmol/L (98-107); GLUCOSE RANDOM 132 mg/dL (74-106); POTASSIUM,K 3.9 mmol/L (3.5-5.1); SODIUM,NA 135 mmol/L (136-148)
[2019-03-09] MEDS ORDERED: Levofloxacin/Dextrose 5%-Water 750 MG in Premix Bag 1 BAG IV ONE (16:23)
[2019-03-09] MEDS ORDERED: traZODone 50 MG Tab PO PRN (17:34)
--- NOTE | 2019-03-09 17:41 | PCM.HP.2 ---
H&P History of Present Illness - General Date of Service: 03/09/19 Admit Problem/Dx: Admission Diagnosis/Problem Admission Diagnosis/Problem Pneumonia - History of Present Illness Initial Comments - Free Text/Narative: 58 yo male with pmh of HTN, COPD, and DM who presents with one week history of productive cough, shortness of breath, fevers and chills. - Related Data Allergies/Adverse Reactions: Allergies Allergy/AdvReac Type Severity Reaction Status Date / Time aspirin Allergy Anaphylactic Verified 03/09/19 17:25 Shock ibuprofen Allergy Difficulty Verified 03/09/19 17:25 Breathing Penicillins Allergy Anaphylactic Verified 03/09/19 17:25 Shock Home Medications: Home Meds Albuterol Sulfate [Proair Hfa] 2 puff INH ASDIRECTED PRN 04/01/18 [History] Lisinopril 20 mg PO DAILY 04/01/18 [History] Pantoprazole [ProTONIX] 40 mg PO DAILY 04/01/18 [History] Sertraline [Zoloft] 50 mg PO BEDTIME 04/01/18 [History] Simvastatin [Zocor] 10 mg PO BEDTIME 04/01/18 [History] metFORMIN HCl [Metformin HCl] 1,000 mg PO BID 04/01/18 [History] traZODone HCl [Trazodone HCl] 50 mg PO BEDTIME PRN 04/01/18 [History] Dulaglutide [Trulicity] 0.75 mg SUBCUT WEEKLY 06/12/18 [History] Empagliflozin [Jardiance] 25 mg PO DAILY 06/12/18 [History] Montelukast Sodium 10 mg PO BEDTIME 06/12/18 [History] Tiotropium Rhododendron [Spiriva Respimat] 2 inhalation INH DAILY 06/12/18 [History] predniSONE 10 mg PO WITHBREAKFAST 06/12/18 [History] Sulfamethoxazole/Trimethoprim [Bactrim Ds Tablet] 1 each PO BID #14 tablet 02/21 [Rx] Past Medical History HEENT History: Reports: Allergic Rhinitis Cardiovascular History: Reports: High Cholesterol, Hypertension Respiratory History: Reports: Asthma, COPD Gastrointestinal History: Reports: Bowel Obstruction, Colon Polyp, GERD Other Genitourinary History: states kidney failure in the past Musculoskeletal History: Reports: Back Pain, Chronic, Osteoarthritis Neurological History: Reports: Concussion Psychiatric History: Reports: Anxiety Endocrine/Metabolic History: Reports: Diabetes, Type II Hematologic History: Reports: None Immunologic History: Reports: None Oncologic (Cancer) History: Reports: None Dermatologic History: Reports: None - Infectious Disease History Infectious Disease History: Reports: None - Past Surgical History Head Surgeries/Procedures: Reports: None HEENT Surgical History: Reports: Cataract Surgery, Naso-Sinus Surgery Cardiovascular Surgical History: Reports: None Respiratory Surgical History: Reports: None GI Surgical History: Reports: Colon, Colonoscopy, Other (See Below) Other GI Surgeries/Procedures: laparoscopic rt hemicolectomy for SBO Male Surgical History: Reports: None Endocrine Surgical History: Reports: None Neurological Surgical History: Reports: None Musculoskeletal Surgical History: Reports: Hip Replacement Other Musculoskeletal Surgeries/Procedures:: daniel hip replacement Oncologic Surgical History: Reports: None Dermatological Surgical History: Reports: None Social & Family History - Family History Family Medical History: Noncontributory - Tobacco Use Smoking Status *Q: Unknown Ever Smoked - Caffeine Use Caffeine Use: Reports: Coffee - Recreational Drug Use Recreational Drug Use: No H&P Review of Systems - Review of Systems: Review Of Systems: ROS reveals no pertinent complaints other than HPI. Exam - Exam Exam: See Below - Vital Signs Vital Signs: Last Vital Signs Temp 36.7 C 03/09/19 14:13 Pulse 106 H 03/09/19 14:59 Resp 20 03/09/19 14:13 BP 106/50 L 03/09/19 14:13 Pulse Ox 91 L 03/09/19 14:59 Weight: 82.554 kg - Exam General: Alert, Oriented HEENT: Mucosa Moist & [place] Neck: Supple Lungs: Clear to Auscultation, Normal Respiratory Effort Cardiovascular: Regular Rate, Regular Rhythm GI/Abdominal Exam: Normal Bowel Sounds, Soft, Non-Tender Extremities: Non-Tender, No Pedal Edema Skin: Warm, Dry, Intact Neurological: No: Focal Deficit - Patient Data Lab Results Last 24 hrs: Laboratory Results - last 24 hr 03/09/19 03/09/19 03/09/19 Range/Units 15:40 15:40 15:40 WBC 12.82 H (4.0-11.0) K/uL RBC 4.22 L (4.50-5.90) M/uL Hgb 12.5 L (13.0-17.0) g/dL Hct 37.5 L (38.0-50.0) % MCV 88.9 (80.0-98.0) fL MCH 29.6 (27.0-32.0) pg MCHC 33.3 (31.0-37.0) g/dL RDW Std Deviation 46.5 (28.0-62.0) fl RDW Coeff of Lydia 14 (11.0-15.0) % Plt Count 166 (150-400) K/uL MPV 9.30 (7.40-12.00) fL Neut % (Auto) 77.9 (48.0-80.0) % Lymph % (Auto) 9.3 L (16.0-40.0) % [place] % (Auto) 9.4 (0.0-15.0) % Eos % (Auto) 3.2 (0.0-7.0) % Baso % (Auto) 0.2 (0.0-1.5) % Neut # (Auto) 10.0 H (1.4-5.7) K/uL Lymph # (Auto) 1.2 (0.6-2.4) K/uL [place] # (Auto) 1.2 H (0.0-0.8) K/uL Eos # (Auto) 0.4 (0.0-0.7) K/uL Baso # (Auto) 0.0 (0.0-0.1) K/uL Nucleated RBC % 0.0 /100WBC Nucleated RBCs # 0 K/uL Lactate 1.5 (0.20-2.00) mmol/L Sodium 135 L (136-148) mmol/L Potassium 3.9 (3.5-5.1) mmol/L Chloride 98 (98-107) mmol/L Carbon Dioxide 25.9 (21.0-32.0) mmol/L BUN 18 (7.0-18.0) mg/dL Creatinine 1.1 (0.8-1.3) mg/dL Est Cr Clr Drug Dosing 71.68 mL/min Estimated GFR (MDRD) > 60.0 ml/min Glucose 132 H (74-106) mg/dL Calcium 8.6 (8.5-10.1) mg/dL Total Bilirubin 0.9 (0.2-1.0) mg/dL AST 15 (15-37) IU/L ALT 28 (14-63) IU/L Alkaline Phosphatase 60 (46-116) U/L Total Protein 6.7 (6.4-8.2) g/dL Albumin 3.4 (3.4-5.0) g/dL Globulin 3.3 (2.6-4.0) g/dL Albumin/Globulin Ratio 1.0 (0.9-1.6) Result Diagrams: 03/09/19 15:40 03/09/19 15:40 [place] Results Last 24 hrs: Microbiology 03/09/19 14:23 Influenza Type A Antigen Screen - Final Nasopharyngeal Swab NEGATIVE INFLUENZA A VIRUS AG REFERENCE RANGE: NEGATIVE Influenza Type B Antigen Screen - Final NEGATIVE INFLUENZA B VIRUS AG REFERENCE RANGE: NEGATIVE Problem List Initiated/Reviewed/Updated: Yes Orders Last 24hrs: Active Orders 24 hr Category Date Time Status Admission Status [Patient Status] [ADT] Stat ADT 03/09/19 16:30 Active Antiembolic Devices [RC] PER UNIT ROUTINE Care 03/09/19 17:36 Ordered Blood Glucose Check, Bedside [RC] TIDMEALS Care 03/09/19 17:35 Ordered EKG Documentation Completion [RC] STAT Care 03/09/19 14:17 Active Oxygen Therapy [RC] PRN Care 03/09/19 17:35 Ordered RT Aerosol Therapy [RC] ASDIRECTED Care 03/09/19 14:19 Active Up ad Birgit [RC] ASDIRECTED Care 03/09/19 17:35 Ordered VTE/DVT Education [RC] PER UNIT ROUTINE Care 03/09/19 17:35 Ordered Vital Signs [RC] Q4H Care 03/09/19 17:35 Ordered [place] Citizen [employer] Diet [DIET] Diet 03/09/19 Dinner Ordered BASIC METABOLIC PANEL,BMP [CHEM] AM Lab 03/10/19 05:11 Ordered CBC WITH AUTO DIFF [HEME] AM Lab 03/10/19 05:11 Ordered CULTURE BLOOD [BC] Stat Lab 03/09/19 15:40 Received CULTURE BLOOD [BC] Stat Lab 03/09/19 15:54 Received Heparin Sodium Med 03/09/19 17:45 Ordered 5,000 units SUBCUT Q8H Insulin Aspart [NovoLOG] Med 03/10/19 07:30 Ordered See Protocol SUBCUT TIDAC Levofloxacin/Dextrose 5%-Water [Levaquin in D5W 750 MG/ Med 03/09/19 16:23 Active 150 ML] 750 mg Premix Bag 1 bag IV ONETIME Levofloxacin/Dextrose 5%-Water [Levaquin in D5W 750 MG/ Med 03/10/19 13:00 Ordered 150 ML] 750 mg Premix Bag 1 bag IV Q24H Pantoprazole [ProTONIX] Med 03/10/19 09:00 Ordered 40 mg PO DAILY Pharmacy to Dose - Vancomycin Med 03/09/19 17:45 Ordered 1 dose .XX ASDIRECTED Sertraline [Zoloft] Med 03/09/19 21:00 Ordered 50 mg PO BEDTIME Tiotropium Rhododendron [Spiriva Respimat] Med 03/10/19 09:00 Ordered 2 inhalation INH DAILY traZODone Med 03/09/19 17:34 Ordered 50 mg PO BEDTIME PRN Blood Culture x2 Reflex Set [OM.PC] Stat Oth 03/09/19 15:35 Ordered Sequential Compression Device [OM.PC] Per Unit Routine Oth 03/09/19 17:35 Ordered Resuscitation Status Routine Resus Stat 03/09/19 17:35 Ordered Medication Orders Levofloxacin/Dextrose 750 mg/ (Premix) 150 mls @ 100 mls/hr IV ONETIME ONE Stop: 03/09/19 17:52 Last Admin: 03/09/19 17:23 Dose: 100 mls/hr Levofloxacin/Dextrose 750 mg/ (Premix) 150 mls @ 100 mls/hr IV Q24H [place] Vancomycin HCl (Pharmacy To Dose - Vancomycin) 1 dose .XX ASDIRECTED [facility] Assessment/Plan Comment:: 58 yo male admitted for community acquired pneumonia. Pneumonia: on Levaquin, cultures pending COPD: received solumedrol in ED, will place on duonebs HTN: holding antihypertensives due to low blood pressures. DM: on ssi, diabetic diet
[2019-03-09] MEDS ORDERED: Heparin Sodium 5,000 Units/ML Vial SUBCUT SCH (17:45)
[2019-03-09] MEDS: Sodium Chloride 0.9% 1,000 ML IV SCH (19:29)
[2019-03-09] MEDS ORDERED: Benzonatate 100 MG Cap PO PRN (19:56)
[2019-03-09] MEDS ORDERED: Sertraline 50 MG Tab PO SCH (21:00)
[2019-03-09] MEDS: Heparin Sodium 5,000 Units/ML Vial SUBCUT SCH (21:06)
[2019-03-10] MEDS: Albuterol/Ipratropium 3.0-0.5 MG/3 ML Neb Soln NEB SCH ×3 (00:15→11:52)
[2019-03-10] MEDS: Sodium Chloride 0.9% 1,000 ML IV SCH ×2 (03:41→12:20)
[2019-03-10] MEDS: Heparin Sodium 5,000 Units/ML Vial SUBCUT SCH (05:45)
[2019-03-10 06:50] LABS: BLOOD UREA NITROGEN,BUN 15 mg/dL (7.0-18.0); CARBON DIOXIDE,CO2 24.3 mmol/L (21.0-32.0); CHLORIDE,CL 103 mmol/L (98-107); GLUCOSE RANDOM 180 mg/dL (74-106); POTASSIUM,K 3.9 mmol/L (3.5-5.1); SODIUM,NA 137 mmol/L (136-148)
[2019-03-10] MEDS: Insulin Aspart 100 Units/ML 3 ML Pen SUBCUT SCH ×2 (06:54→12:11)
[2019-03-10] MEDS ORDERED: TIOTROPIUM BROMIDE INH SCH (09:00)
[2019-03-10] MEDS ORDERED: Pantoprazole 40 MG Tab.CR PO SCH (09:00)
[2019-03-10] MEDS ORDERED: FLU Vacc QS2019-20(6MOS+)/PF 60 MCG/0.5 ML SYRINGE IM ONE (09:00)
--- NOTE | 2019-03-10 12:51 | PCM.DCSUM1 ---
Discharge Summary - Discharge Data Discharge Date: 03/10/19 Discharge Disposition: Home, Self-Care 01 Condition: Stable - Referral to Home Health Primary Care Physician: Manuel Verdugo MD - Patient Summary/Data Hospital Course: 58 yo male with past medical history of HTN, COPD, and DM who was admitted for community acquired pneumonia. He presents with one week history of productive cough, shortness of breath, fevers and chills. His WBC was 12,000 and his CXR reported no acute pathology. He was treated with Levaquin, solumedrol, and duonebs. Today he is requesting discharge home. He was discharged home to follow up with Dr. Verdugo. - Discharge Plan Prescriptions/Med Rec: levoFLOXacin [Levaquin] 750 mg PO DAILY #4 tab Home Medications: Home Meds Albuterol Sulfate [Proair Hfa] 2 puff INH Q4HR PRN 04/01/18 [History] Lisinopril 20 mg PO DAILY 04/01/18 [History] Pantoprazole [ProTONIX] 40 mg PO DAILY 04/01/18 [History] Sertraline [Zoloft] 50 mg PO BEDTIME 04/01/18 [History] Simvastatin [Zocor] 10 mg PO BEDTIME 04/01/18 [History] metFORMIN HCl [Metformin HCl] 1,000 mg PO BID 04/01/18 [History] traZODone HCl [Trazodone HCl] 50 mg PO BEDTIME PRN 04/01/18 [History] Dulaglutide [Trulicity] 0.75 mg SUBCUT WEEKLY 06/12/18 [History] Empagliflozin [Jardiance] 25 mg PO DAILY 06/12/18 [History] Montelukast Sodium 10 mg PO BEDTIME 06/12/18 [History] predniSONE 10 mg PO WITHBREAKFAST 06/12/18 [History] Fluticasone/Salmeterol [Advair 500-50] 1 puff INH BID 03/09/19 [History] Olopatadine [Patanol 0.1% Ophth Soln] 1 drop EYEBOTH BID 03/09/19 [History] levoFLOXacin [Levaquin] 750 mg PO DAILY #4 tab 03/10/19 [Rx] Patient Handouts: Community-Acquired Pneumonia, Adult, [id number] Forms: ED Department Discharge Referrals: Manuel Verdugo MD [Primary Care Provider] - - Discharge Summary/Plan Comment DC Time >30 min.: No - Patient Data Vitals - Most Recent: Last Vital Signs Temp 36.3 C 03/10/19 07:48 Pulse 84 03/10/19 04:00 Resp 16 03/10/19 07:48 BP 123/64 03/10/19 07:48 Pulse Ox 93 L 03/10/19 07:48 Weight - Most Recent: 82.554 kg I&O - Last 24 hours: Intake & Output 03/09/19 03/10/19 03/10/19 22:59 06:59 14:59 Intake Total 1791 Output Total 1800 Balance -9 Lab Results - Last 24 hrs: Laboratory Results - last 24 hr 03/09/19 03/09/19 03/09/19 Range/Units 15:40 15:40 15:40 WBC 12.82 H (4.0-11.0) K/uL RBC 4.22 L (4.50-5.90) M/uL Hgb 12.5 L (13.0-17.0) g/dL Hct 37.5 L (38.0-50.0) % MCV 88.9 (80.0-98.0) fL MCH 29.6 (27.0-32.0) pg MCHC 33.3 (31.0-37.0) g/dL RDW Std Deviation 46.5 (28.0-62.0) fl RDW Coeff of Lydia 14 (11.0-15.0) % Plt Count 166 (150-400) K/uL MPV 9.30 (7.40-12.00) fL Neut % (Auto) 77.9 (48.0-80.0) % Lymph % (Auto) 9.3 L (16.0-40.0) % [place] % (Auto) 9.4 (0.0-15.0) % Eos % (Auto) 3.2 (0.0-7.0) % Baso % (Auto) 0.2 (0.0-1.5) % Neut # (Auto) 10.0 H (1.4-5.7) K/uL Lymph # (Auto) 1.2 (0.6-2.4) K/uL [place] # (Auto) 1.2 H (0.0-0.8) K/uL Eos # (Auto) 0.4 (0.0-0.7) K/uL Baso # (Auto) 0.0 (0.0-0.1) K/uL Nucleated RBC % 0.0 /100WBC Nucleated RBCs # 0 K/uL Lactate 1.5 (0.20-2.00) mmol/L Sodium 135 L (136-148) mmol/L Potassium 3.9 (3.5-5.1) mmol/L Chloride 98 (98-107) mmol/L Carbon Dioxide 25.9 (21.0-32.0) mmol/L BUN 18 (7.0-18.0) mg/dL Creatinine 1.1 (0.8-1.3) mg/dL Est Cr Clr Drug Dosing 71.68 mL/min Estimated GFR (MDRD) > 60.0 ml/min Glucose 132 H (74-106) mg/dL POC Glucose (60-110) mg/dL Calcium 8.6 (8.5-10.1) mg/dL Total Bilirubin 0.9 (0.2-1.0) mg/dL AST 15 (15-37) IU/L ALT 28 (14-63) IU/L Alkaline Phosphatase 60 (46-116) U/L Total Protein 6.7 (6.4-8.2) g/dL Albumin 3.4 (3.4-5.0) g/dL Globulin 3.3 (2.6-4.0) g/dL Albumin/Globulin Ratio 1.0 (0.9-1.6) Urine Color Urine Appearance Urine pH (5.0-8.0) Ur Specific [place] (1.001-1.035) Urine Protein (NEGATIVE) mg/dL Urine Glucose (UA) (NEGATIVE) mg/dL Urine Ketones (NEGATIVE) mg/dL Urine Occult Blood (NEGATIVE) Urine Nitrite (NEGATIVE) Urine Bilirubin (NEGATIVE) Urine Urobilinogen (<2.0) EU/dL Ur Leukocyte Esterase (NEGATIVE) 03/09/19 03/09/19 03/10/19 Range/Units 18:22 22:30 06:00 WBC 12.41 H (4.0-11.0) K/uL RBC 3.92 L (4.50-5.90) M/uL Hgb 11.7 L (13.0-17.0) g/dL Hct 35.3 L (38.0-50.0) % MCV 90.1 (80.0-98.0) fL MCH 29.8 (27.0-32.0) pg MCHC 33.1 (31.0-37.0) g/dL RDW Std Deviation 46.9 (28.0-62.0) fl RDW Coeff of Lydia 14 (11.0-15.0) % Plt Count 182 (150-400) K/uL MPV 9.70 (7.40-12.00) fL Neut % (Auto) 88.9 H (48.0-80.0) % Lymph % (Auto) 5.9 L (16.0-40.0) % [place] % (Auto) 5.1 (0.0-15.0) % Eos % (Auto) 0.0 (0.0-7.0) % Baso % (Auto) 0.1 (0.0-1.5) % Neut # (Auto) 11.0 H (1.4-5.7) K/uL Lymph # (Auto) 0.7 (0.6-2.4) K/uL [place] # (Auto) 0.6 (0.0-0.8) K/uL Eos # (Auto) 0.0 (0.0-0.7) K/uL Baso # (Auto) 0.0 (0.0-0.1) K/uL Nucleated RBC % 0.0 /100WBC Nucleated RBCs # 0 K/uL Lactate (0.20-2.00) mmol/L Sodium (136-148) mmol/L Potassium (3.5-5.1) mmol/L Chloride (98-107) mmol/L Carbon Dioxide (21.0-32.0) mmol/L BUN (7.0-18.0) mg/dL Creatinine (0.8-1.3) mg/dL Est Cr Clr Drug Dosing mL/min Estimated GFR (MDRD) ml/min Glucose (74-106) mg/dL POC Glucose 139 H (60-110) mg/dL Calcium (8.5-10.1) mg/dL Total Bilirubin (0.2-1.0) mg/dL AST (15-37) IU/L ALT (14-63) IU/L Alkaline Phosphatase (46-116) U/L Total Protein (6.4-8.2) g/dL Albumin (3.4-5.0) g/dL Globulin (2.6-4.0) g/dL Albumin/Globulin Ratio (0.9-1.6) Urine Color YELLOW Urine Appearance CLEAR Urine pH 6.0 (5.0-8.0) Ur Specific [place] <= 1.005 (1.001-1.035) Urine Protein NEGATIVE (NEGATIVE) mg/dL Urine Glucose (UA) >=1000 (NEGATIVE) mg/dL Urine Ketones NEGATIVE (NEGATIVE) mg/dL Urine Occult Blood NEGATIVE (NEGATIVE) Urine Nitrite NEGATIVE (NEGATIVE) Urine Bilirubin NEGATIVE (NEGATIVE) Urine Urobilinogen 0.2 (<2.0) EU/dL Ur Leukocyte Esterase NEGATIVE (NEGATIVE) 03/10/19 03/10/19 03/10/19 Range/Units 06:00 06:00 11:37 WBC (4.0-11.0) K/uL RBC (4.50-5.90) M/uL Hgb (13.0-17.0) g/dL Hct (38.0-50.0) % MCV (80.0-98.0) fL MCH (27.0-32.0) pg MCHC (31.0-37.0) g/dL RDW Std Deviation (28.0-62.0) fl RDW Coeff of Lydia (11.0-15.0) % Plt Count (150-400) K/uL MPV (7.40-12.00) fL Neut % (Auto) (48.0-80.0) % Lymph % (Auto) (16.0-40.0) % [place] % (Auto) (0.0-15.0) % Eos % (Auto) (0.0-7.0) % Baso % (Auto) (0.0-1.5) % Neut # (Auto) (1.4-5.7) K/uL Lymph # (Auto) (0.6-2.4) K/uL [place] # (Auto) (0.0-0.8) K/uL Eos # (Auto) (0.0-0.7) K/uL Baso # (Auto) (0.0-0.1) K/uL Nucleated RBC % /100WBC Nucleated RBCs # K/uL Lactate (0.20-2.00) mmol/L Sodium 137 (136-148) mmol/L Potassium 3.9 (3.5-5.1) mmol/L Chloride 103 (98-107) mmol/L Carbon Dioxide 24.3 (21.0-32.0) mmol/L BUN 15 (7.0-18.0) mg/dL Creatinine 1.1 (0.8-1.3) mg/dL Est Cr Clr Drug Dosing 71.68 mL/min Estimated GFR (MDRD) > 60.0 ml/min Glucose 180 H (74-106) mg/dL POC Glucose 208 H 120 H (60-110) mg/dL Calcium 8.6 (8.5-10.1) mg/dL Total Bilirubin (0.2-1.0) mg/dL AST (15-37) IU/L ALT (14-63) IU/L Alkaline Phosphatase (46-116) U/L Total Protein (6.4-8.2) g/dL Albumin (3.4-5.0) g/dL Globulin (2.6-4.0) g/dL Albumin/Globulin Ratio (0.9-1.6) Urine Color Urine Appearance Urine pH (5.0-8.0) Ur Specific [place] (1.001-1.035) Urine Protein (NEGATIVE) mg/dL Urine Glucose (UA) (NEGATIVE) mg/dL Urine Ketones (NEGATIVE) mg/dL Urine Occult Blood (NEGATIVE) Urine Nitrite (NEGATIVE) Urine Bilirubin (NEGATIVE) Urine Urobilinogen (<2.0) EU/dL Ur Leukocyte Esterase (NEGATIVE) [facility] Results - Last 24 hrs: Microbiology 03/09/19 14:23 Influenza Type A Antigen Screen - Final Nasopharyngeal Swab NEGATIVE INFLUENZA A VIRUS AG REFERENCE RANGE: NEGATIVE Influenza Type B Antigen Screen - Final NEGATIVE INFLUENZA B VIRUS AG REFERENCE RANGE: NEGATIVE Med Orders - Current: Current Medications Albuterol/Ipratropium (Duoneb 3.0-0.5 Mg/3 Ml) 3 ml NEB Q6HRRT [facility] Last Admin: 03/10/19 11:52 Dose: 3 ml Benzonatate (Tessalon Perles) 200 mg PO TID PRN PRN Reason: Cough Last Admin: 03/09/19 21:35 Dose: 200 mg Heparin Sodium (Porcine) (Heparin Sodium) 5,000 units SUBCUT TID [facility] Last Admin: 03/10/19 05:45 Dose: 5,000 units Levofloxacin/Dextrose 750 mg/ (Premix) 150 mls @ 100 mls/hr IV Q24H [facility] Sodium Chloride (Normal Saline) 1,000 mls @ 125 mls/hr IV ASDIRECTED [facility] Last Admin: 03/10/19 12:20 Dose: 125 mls/hr Insulin Aspart (Novolog) 0 unit SUBCUT TIDAC [facility]; Protocol Last Admin: 03/10/19 12:11 Dose: Not Given Pantoprazole Sodium (Protonix) 40 mg PO DAILY [facility] Last Admin: 03/10/19 08:11 Dose: 40 mg Tiotropium [place] [ Spiriva Respimat] 2 Inhalation 2 each INH DAILY [facility] Last Admin: 03/10/19 08:12 Dose: Not Given Sertraline HCl (Zoloft) 50 mg PO BEDTIME [facility] Last Admin: 03/09/19 21:06 Dose: 50 mg Trazodone HCl (Trazodone) 50 mg PO BEDTIME PRN PRN Reason: Insomnia Discontinued Medications Albuterol/Ipratropium (Duoneb 3.0-0.5 Mg/3 Ml) 3 ml NEB ONETIME ONE Stop: 03/09/19 14:20 Last Admin: 03/09/19 14:26 Dose: 3 ml Heparin Sodium (Porcine) (Heparin Sodium) 5,000 units SUBCUT Q8H [facility] Sodium Chloride (Normal Saline) 1,000 mls @ 999 mls/hr IV STAT ONE Stop: 03/09/19 16:35 Last Admin: 03/09/19 15:56 Dose: 999 mls/hr Levofloxacin/Dextrose 750 mg/ (Premix) 150 mls @ 100 mls/hr IV ONETIME ONE Stop: 03/09/19 17:52 Last Admin: 03/09/19 17:23 Dose: 100 mls/hr Vancomycin HCl 1.25 gm/ Sodium (Chloride) 250 mls @ 166.667 mls/hr IV Q12H [facility] Influenza Virus Vaccine (Pharmacy To Dose - Influenza Vaccine) 1 each IM ONETIME ONE Stop: 03/09/19 17:51 Influenza Virus Vaccine (Fluzone Quad [id number] Syringe) 60 mcg IM .ONCE ONE Stop: 03/10/19 09:01 Methylprednisolone Sodium Succinate (Solu-Medrol) 125 mg IVPUSH ONETIME ONE Stop: 03/09/19 15:58 Last Admin: 03/09/19 16:59 Dose: 125 mg Vancomycin HCl (Pharmacy To Dose - Vancomycin) 1 dose .XX ASDIRECTED [facility]
[2019-03-10 13:15] VITALS: BP 134/65; PULSE 65
[2019-03-10] MEDS ORDERED: Levofloxacin/Dextrose 5%-Water 750 MG in Premix Bag 1 BAG IV SCH (16:30)
== END 2019-03-10 14:00 | disposition home or self-care (01) ==
LOC: MW.ED 14:00 → MW.MS 16:37
PROVIDERS: ADMIT Internal Medicine; ATTEND Internal Medicine
DX: J18.1 Lobar pneumonia, unspecified organism (principal); I10 Essential (primary) hypertension; E11.9 Type 2 diabetes mellitus without complications; J44.9 Chronic obstructive pulmonary disease, unspecified; Z88.6 Allergy status to analgesic agent; Z88.0 Allergy status to penicillin; Z23 Encounter for immunization; Z79.84 Long term (current) use of oral hypoglycemic drugs; Z79.52 Long term (current) use of systemic steroids; Z79.899 Other long term (current) drug therapy
CPT/HCPCS: 36415; 71046; 80048; 80053; 81003; 82962; 83605; 85025; 87040; 87804; 90686; 93005; 94640; 96361; 96374; 99285; A9270; J1644; J1815; J1956; J2930; J7040; 96372; 96375; 99283; G0378; J7620-GY

== ENCOUNTER 2021-08-05 07:07 | Day surgery (SDC) | payer MEDICARE ==
[2021-08-05] MEDS ORDERED: Propofol 200 MG/20 ML SDV ONE (08:13)
[2021-08-05] MEDS ORDERED: fentaNYL 100 MCG/2 ML SDV ONE (08:13)
[2021-08-05] MEDS ORDERED: Lidocaine 2% 5 ML SDV ONE (08:14)
[2021-08-05 08:53] VITALS: BP 171/80; PULSE 76
== END 2021-08-05 09:10 | disposition home or self-care (01) ==
LOC: MW.SDS 07:07
PROVIDERS: ATTEND Surgery
DX: K29.50 Unspecified chronic gastritis without bleeding (principal); K31.A0 Gastric intestinal metaplasia, unspecified; B96.81 Helicobacter pylori [H. pylori] as the cause of diseases classified elsewhere; R13.10 Dysphagia, unspecified; F41.9 Anxiety disorder, unspecified; J44.9 Chronic obstructive pulmonary disease, unspecified; K21.9 Gastro-esophageal reflux disease without esophagitis; I10 Essential (primary) hypertension; E78.00 Pure hypercholesterolemia, unspecified; E11.9 Type 2 diabetes mellitus without complications; Z88.8 Allergy status to other drugs, medicaments and biological substances; Z88.0 Allergy status to penicillin; Z79.899 Other long term (current) drug therapy; Z98.890 Other specified postprocedural states; Z87.891 Personal history of nicotine dependence; Z79.84 Long term (current) use of oral hypoglycemic drugs
CPT/HCPCS: 43239; J2704; J3010; J7120; 00731